=== PATIENT | female | born 1950 | race Caucasian/White ===

== ENCOUNTER → 2016-09-12 | Outpatient (CLI) | payer MEDICARE, OTHER | END | disposition home or self-care (01) | LOC: MW.MNT 09:41 | DX: I10 Essential (primary) hypertension (principal) | CPT/HCPCS: 97802 ==

== ENCOUNTER 2017-07-26 05:21 | Emergency (ER) | payer MEDICARE, OTHER ==
[2017-07-26] MEDS ORDERED: Ketorolac 30 MG/ML SDV IVPUSH ONE (05:33)
[2017-07-26] MEDS ORDERED: Sodium Chloride 0.9% 1,000 ML IV ONE ×2 (05:33→07:34)
[2017-07-26] MEDS ORDERED: Ondansetron 4 MG/2 ML SDV IVPUSH ONE ×2 (05:34→08:02)
--- NOTE | 2017-07-26 05:40 | EDM.PDOC ---
ED HPI GENERAL MEDICAL PROBLEM - General Chief Complaint: Abdominal Pain Stated Complaint: ABDOMINAL PAIN Time Seen by Provider: 07/26/17 05:38 Source of Information: Reports: Patient - History of Present Illness INITIAL COMMENTS - FREE TEXT/NARRATIVE: HISTORY AND PHYSICAL: History of present illness: [ Patient presents with abdominal pain she rates 9 out of 10 radiating from the back to the right lower quadrant, she relates this to jumping out of bed to answer the telephone this morning at 4 AM. She also states she has had low-grade symptoms in the lower abdomen for the last couple of days prior to this no fever nausea vomiting diarrhea constipation chest pain shortness breath headache dizziness palpitation no bowel or urine symptoms Patient reports hysterectomy and appendectomy performed in remote past ] Review of systems: As per history of present illness and below otherwise all systems reviewed and negative. Past medical history: As per history of present illness and as reviewed below otherwise noncontributory. Surgical history: As per history of present illness and as reviewed below otherwise noncontributory. Social history: No reported history of drug or alcohol abuse. Family history: As per history of present illness and as reviewed below otherwise noncontributory. Physical exam: HEENT: Atraumatic, normocephalic, pupils reactive, negative for conjunctival pallor or scleral icterus, mucous membranes moist, throat clear, neck supple, nontender, trachea midline. Lungs: Clear to auscultation, breath sounds equal bilaterally, chest nontender. Heart: S1S2, regular, negative for clicks, rubs, or JVD. Abdomen: Soft, nondistended, tender right lower quadrant as well as right upper quadrant mild guarding no rebound. Negative for masses or hepatosplenomegaly. Negative for costovertebral tenderness. Pelvis: Stable nontender. Genitourinary: Deferred. Rectal: Deferred. Extremities: Atraumatic, negative for cords or calf pain. Neurovascular unremarkable. Neuro: Awake, alert, oriented. Cranial nerves II through XII unremarkable. Cerebellum unremarkable. Motor and sensory unremarkable throughout. Exam nonfocal. Diagnostics: [cbc, cmp ua adilia lip ekg abd pelvis ct no contrast ] Therapeutics: [Saline fluid Zofran 8 mg IV Toradol 30 mg IV patient signed out at [address] results , further eval treat and disposition Dr. Raza] Impression: abdominal pain] Definitive disposition and diagnosis as appropriate pending reevaluation and review of above. right lower abdomen Pain Score (Numeric/FACES): 9 - Related Data Allergies Allergy/AdvReac Type Severity Reaction Status Date / Time No Known Allergies Allergy Verified 07/26/17 05:28 Home Meds: Home Meds Fish Oil/[place]-3 Fatty Acids [Fish Oil] 1,000 mg PO DAILY 03/10/14 [History] Levothyroxine 125 mcg PO BRK 03/10/14 [History] Losartan [Cozaar] 100 mg PO DAILY 03/16/14 [History] Triamterene/Hydrochlorothiazid [Triamterene-HCTZ 37.5-25 MG] 5.25 mg PO DAILY [History] Potassium Chloride 20 meq PO DAILY 08/07/16 [History] Aspirin 81 mg PO DAILY 07/26/17 [History] Past Medical History HEENT History: Reports: Other (See Below) Other HEENT History: "floaters" Cardiovascular History: Reports: High Cholesterol, Hypertension Respiratory History: Reports: None Gastrointestinal History: Reports: GERD Genitourinary History: Reports: UTI, Recurrent, Other (See Below) Other Genitourinary History: over active bladder 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 STATISTICS History: Reports: Polycystic Ovaries, Musculoskeletal History: Reports: None Neurological History: Reports: None Psychiatric History: Reports: None Endocrine/Metabolic History: Reports: Hypothyroidism, Obesity/BMI 30+ Hematologic History: Reports: Anemia, Blood Transfusion(s) Immunologic History: Reports: None Oncologic (Cancer) History: Reports: None Dermatologic History: Reports: None - Infectious Disease History Infectious Disease History: Reports: Chicken Pox, Measles, Mumps - Past Surgical History Head Surgeries/Procedures: Reports: None Cardiovascular Surgical History: Reports: None Respiratory Surgical History: Reports: None GI Surgical History: Reports: Appendectomy, Cholecystectomy, Colonoscopy Female Surgical History: Reports: Hysterectomy Endocrine Surgical History: Reports: None Neurological Surgical History: Reports: None Musculoskeletal Surgical History: Reports: Carpal Tunnel, Knee Replacement Oncologic Surgical History: Reports: None Social & Family History - Family History Family Medical History: Noncontributory Cardiac: Reports: Blood Clots/VTE/DVT, Heart Failure Respiratory: Reports: Asthma Musculoskeletal: Reports: Osteoporosis Neurological: Reports: Alzheimers Disease Endocrine/Metabolic: Reports: Osteoporosis Hematologic: Reports: Bleeding Disorder Oncologic: Reports: Bladder - Tobacco Use Smoking Status *Q: Never Smoker Second Hand Smoke Exposure: No - Caffeine Use Caffeine Use: Reports: Coffee - Alcohol Use Days Per Week of Alcohol Use: 0 Number of Drinks Per Day: 0 Total Drinks Per Week: 0 - Recreational Drug Use Recreational Drug Use: No Drug Use in Last 12 Months: No ED ROS GENERAL - Review of Systems Review Of Systems: ROS reveals no pertinent complaints other than HPI. ED EXAM, GENERAL - Physical Exam Exam: See Below Course - Vital Signs Last Recorded V/S: Last Vital Signs Temp 96.7 F 07/26/17 05:24 Pulse 56 L 07/26/17 05:24 Resp 20 07/26/17 05:24 BP 165/56 H 07/26/17 05:24 Pulse Ox 100 07/26/17 05:24 - Orders/Labs/Meds Orders: Active Orders 24 hr Category Date Time Status EKG Documentation Completion [RC] STAT Care 07/26/17 05:43 Active Abdomen Pelvis w wo Cont [CT] Stat Exams 07/26/17 05:37 Ordered UA W/MICROSCOPIC [URIN] Stat Lab 07/26/17 05:32 Uncollected Labs: Laboratory Tests 07/26/17 07/26/17 07/26/17 Range/Units 05:44 05:44 05:44 WBC 5.81 (4.0-11.0) K/uL RBC 3.86 L (4.30-5.90) M/uL Hgb 12.0 (12.0-16.0) g/dL Hct 35.6 L (36.0-46.0) % MCV 92.2 (80.0-98.0) fL MCH 31.1 (27.0-32.0) pg MCHC 33.7 (31.0-37.0) g/dL RDW Std Deviation 45.1 (28.0-62.0) fl RDW Coeff of Simon 13 (11.0-15.0) % Plt Count 270 (150-400) K/uL MPV 9.00 (7.40-12.00) fL Neut % (Auto) 54.2 (48.0-80.0) % Lymph % (Auto) 30.5 (16.0-40.0) % [place] % (Auto) 11.9 (0.0-15.0) % Eos % (Auto) 2.9 (0.0-7.0) % Baso % (Auto) 0.5 (0.0-1.5) % Neut # (Auto) 3.2 (1.4-5.7) K/uL Lymph # (Auto) 1.8 (0.6-2.4) K/uL [place] # (Auto) 0.7 (0.0-0.8) K/uL Eos # (Auto) 0.2 (0.0-0.7) K/uL Baso # (Auto) 0.0 (0.0-0.1) K/uL Nucleated RBC % 0.0 /100WBC Nucleated RBCs # 0 K/uL Sodium 138 (136-146) mmol/L Potassium 4.0 (3.5-5.1) mmol/L Chloride 105 (98-110) mmol/L Carbon Dioxide 22 (21-31) mmol/L BUN 32 H (6.0-23.0) mg/dL Creatinine 1.0 (0.6-1.5) mg/dL Est Cr Clr Drug Dosing 39.21 mL/min Estimated GFR (MDRD) 55.3 ml/min Glucose 103 (60-110) mg/dL Calcium 9.0 (8.8-10.8) mg/dL Total Bilirubin 0.2 (0.1-1.5) mg/dL AST 17 (5-40) IU/L ALT 17 (8-54) IU/L Alkaline Phosphatase 91 (40-150) Troponin I < 0.10 (0.0-0.29) NG/ML Total Protein 6.2 (6.0-8.0) g/dL Albumin 3.9 (3.4-4.8) g/dL Globulin 2.3 (2.0-3.5) g/dL Albumin/Globulin Ratio 1.7 (1.3-2.8) Amylase 89 (10-90) U/L Lipase 88 H (7-80) U/L Meds: Medications Discontinued Medications Generic Name Dose Route Start Last Admin Trade Name Freq PRN Reason Stop Dose Admin Sodium Chloride 1,000 mls @ 999 mls/hr 07/26/17 05:33 07/26/17 05:51 Normal Saline IV 07/26/17 06:33 999 mls/hr STAT ONE Administration Ketorolac Tromethamine 30 mg 07/26/17 05:33 07/26/17 05:52 Toradol IVPUSH 07/26/17 05:34 30 mg ONETIME ONE Administration Ondansetron HCl 8 mg 07/26/17 05:34 07/26/17 05:54 Zofran IVPUSH 07/26/17 05:35 8 mg ONETIME ONE Administration Departure - Departure Time of Disposition: 07:04 Disposition: Still A Patient 30 Condition: Fair Clinical Impression: Abdominal pain - Discharge Information Referrals: Migel Ledezma MD [Primary Care Provider] - Forms: ED Department Discharge - My Orders Last 24 Hours: My Active Orders 07/26/17 05:32 UA W/MICROSCOPIC [URIN] Stat 07/26/17 05:37 Abdomen Pelvis w wo Cont [CT] Stat 07/26/17 05:43 EKG Documentation Completion [RC] STAT - Assessment/Plan Last 24 Hours: My Active Orders 07/26/17 05:32 UA W/MICROSCOPIC [URIN] Stat 07/26/17 05:37 Abdomen Pelvis w wo Cont [CT] Stat 07/26/17 05:43 EKG Documentation Completion [RC] STAT
[2017-07-26] MEDS ORDERED: Iopamidol 755 Mg/ML 75 ML Bottle IVPUSH STA (07:30)
[2017-07-26] MEDS ORDERED: Famotidine 20 MG/2 ML SDV IVPUSH ONE (07:34)
[2017-07-26] MEDS ORDERED: Morphine 2 MG/ML Syringe IVPUSH ONE (08:02)
[2017-07-26 08:32] VITALS: BP 138/68
--- NOTE | 2017-07-28 09:45 | CT ---
EXAM DATE: 07/26/17 PATIENT'S AGE: 66 Patient: ADRIAN CONTRERAS Facility: [place], [place] Site . Site : 1950 Study: CT Abdomen/Pelvis W/ and W/O Cont [id number]/6/2018 7:34:35 AM Ordering Physician: Yamilet Ortez Final Report: INDICATION: Right lower quadrant pain since 4 a.m. TECHNIQUE: Volumetric helical scanning of the abdomen and pelvis was performed without and with 75 cc of Isovue 370 contrast material IV. Coronal and sagittal reconstructions were obtained. COMPARISON: None. FINDINGS: An acute hemorrhage in the right rectus muscle is demonstrated. No free blood is apparent. No bowel abnormality is apparent except for the small hiatal hernia. The liver is normal in size, shape and attenuation. Post op changes of cholecystectomy are demonstrated. No bile duct dilation is evident. The spleen, adrenal glands and pancreas are within normal limits. The kidneys are unremarkable. No lymphadenopathy is evident. Postop changes of total abdominal hysterectomy are demonstrated. A noncalcified 2 mm right middle lobe nodule is demonstrated. Along the minor fissure on image 9 of series 301. The heart is normal in size. IMPRESSION: 1. Acute right rectus hemorrhage. 2. Post total abdominal hysterectomy and cholecystectomy. 3. Noncalcified 2 mm right middle lobe nodule. Follow-up in accordance with Fleischner Society Guidelines (see below) is recommended. FLEISCHNER SOCIETY GUIDELINES: LOW RISK: - nodule less than 6 mm: No follow-up needed. - nodule 6-8 mm: Initial follow-up CT at 6-12 months and then at 18-24 months if no change. - nodule greater than 8 mm: Follow-up CTs at around 3, 9, and 24 months. Dynamic contrast-enhanced CT, PET, and/or biopsy. MULTIPLE LOW RISK: - nodule less than 6 mm: No follow-up needed. - nodule 6-8 mm: CT at 3-6 months, then consider CT at 18-24 months. - nodule greater than 8 mm: CT at 3-6 months, then consider CT at 18-24 months. HIGH RISK: - nodule less than 6 mm: Follow-up at 12 months. If no change, no further imaging needed. - nodule 6-8 mm: Initial follow-up CT at 3-6 months and then at 9-12 and 24 months if no change. - nodule greater than 8 mm: Follow-up CTs at around 3, 9, and 24 months. Dynamic contrast-enhanced CT, PET, and/or biopsy. MULTIPLE HIGH RISK: - nodule less than 6 mm: Optional CT at 12 months. - nodule 6-8 mm: CT at 3-6 months, then at 18-24 months. - nodule greater than 8 mm: CT at 3-6 months, then at 18-24 months. HIGH RISK is defined as one or more of the following: - at least 20 pack-year smoking history or equivalent second-hand exposure. - personal history of cancer or family history of lung cancer. - occupational exposure (asbestos, beryllium, silica, uranium, radon) - chronic interstitial/fibrotic lung disease. Please note that all CT scans at this facility use dose modulation, iterative reconstruction, and/or weight-based dosing when appropriate to reduce radiation dose to as low as reasonably achievable. Dictated by Alberto Spicer MD @ Jul 26 2017 7:44AM (Electronic Signature) Report Signed by Proxy. MTDD
== END 2017-07-26 09:19 | disposition home or self-care (01) ==
LOC: MW.ED 05:21
DX: M79.81 Nontraumatic hematoma of soft tissue (principal); E78.00 Pure hypercholesterolemia, unspecified; I10 Essential (primary) hypertension; Z79.899 Other long term (current) drug therapy; Z79.82 Long term (current) use of aspirin
CPT/HCPCS: 74178; 80053; 82150; 83690; 84484; 85025; 93005; 96361; 96374; 96375; 96376; 99284; J1885; J2270; J2405; J7040

== ENCOUNTER 2017-08-13 06:45 | Day surgery (SDC) | payer MEDICARE, OTHER ==
[~2017-08-13 06:45] MED LIST: Lactated Ringers 1,000 ML IV SCH; ceFAZolin 1 GM in Premix Bag 1 BAG IV SCH
[2017-08-13] MEDS ORDERED: Lidocaine 2% 5 ML SDV ONE ×2 (07:03→07:28)
[2017-08-13] MEDS ORDERED: Midazolam 1 MG/ML 2 ML SDV ONE (07:04)
[2017-08-13] MEDS ORDERED: fentaNYL 250 MCG/5 ML SDV ONE (07:04)
[2017-08-13] MEDS ORDERED: Propofol 200 MG/20 ML SDV ONE (07:04)
[2017-08-13] MEDS ORDERED: Midazolam 1 MG/ML 2 ML SDV IVPUSH ONE (07:16)
[2017-08-13] MEDS ORDERED: fentaNYL 100 MCG/2 ML SDV IVPUSH PRN ×2 (07:16→08:58)
--- NOTE | 2017-08-13 07:24 | PCM.PREANE ---
Preanesthetic Assessment - Anesthesia/Transfusion/Family Hx Anesthesia History: Prior Anesthesia Without Reaction Other Type of Anesthesia Reaction Comment: Reports history of motion sickness and "do get nauseated w/anesthesia" Family History of Anesthesia Reaction: No Transfusion History: Prior Transfusion Without Reaction - Review of Systems General: No Symptoms Pulmonary: No Symptoms Cardiovascular: No Symptoms Gastrointestinal: No Symptoms Neurological: No Symptoms, Difficulty Walking - Physical Assessment NPO Status Date: 08/12/17 Height: 1.5 m Weight: 76.657 kg ASA Class: 2 Mental Status: Alert & Oriented x3 Airway Class: Mallampati = 2 Dentition: Reports: Normal Dentition, [place](s) Lungs: Clear to Auscultation, Normal Respiratory Effort Cardiovascular: Regular Rate, Regular Rhythm - Allergies Allergies/Adverse Reactions: Allergies Allergy/AdvReac Type Severity Reaction Status Date / Time amlodipine Allergy Itching Verified 08/08/17 13:26 - Anesthesia Plan Pre-Op Medication Ordered: Anxiolytic - Acknowledgements Anesthesia Type Planned: General Anesthesia, Regional Block (PMH: thyroid replacement, htn, gerd, s/p TKA, PLAN: GET for surgery with ISB for post op pain management) Pt an Appropriate Candidate for the Planned Anesthesia: Yes Alternatives and Risks of Anesthesia Discussed w Pt/Guardian: Yes Pt/Guardian Understands and Agrees with Anesthesia Plan: Yes PreAnesthesia Questionnaire HEENT History: Reports: None Cardiovascular History: Reports: High Cholesterol, Hypertension Respiratory History: Reports: None Gastrointestinal History: Reports: None Genitourinary History: Reports: UTI, Recurrent, Other (See Below) Other Genitourinary History: over active bladder 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: Reports: Polycystic Ovaries, Musculoskeletal History: Reports: Arthritis Neurological History: Reports: None Psychiatric History: Reports: None Endocrine/Metabolic History: Reports: Hypothyroidism, Obesity/BMI 30+ Hematologic History: Reports: Anemia, Blood Transfusion(s) Immunologic History: Reports: None Oncologic (Cancer) History: Reports: None Dermatologic History: Reports: None - Infectious Disease History Infectious Disease History: Reports: Chicken Pox, Measles, Mumps - Past Surgical History Head Surgeries/Procedures: Reports: None HEENT Surgical History: Reports: Tonsillectomy Cardiovascular Surgical History: Reports: None Respiratory Surgical History: Reports: None GI Surgical History: Reports: Appendectomy, Cholecystectomy, Colonoscopy Female Surgical History: Reports: Breast Biopsy, Hysterectomy, Oophorectomy, Tubal Ligation Endocrine Surgical History: Reports: None Neurological Surgical History: Reports: None Musculoskeletal Surgical History: Reports: Carpal Tunnel, Knee Replacement, Other (See Below) Other Musculoskeletal Surgeries/Procedures:: hammer toe Oncologic Surgical History: Reports: Biopsy of Breast Dermatological Surgical History: Reports: Skin Biopsy - SUBSTANCE USE Smoking Status *Q: Never Smoker Second Hand Smoke Exposure: No Days Per Week of Alcohol Use: 0 Number of Drinks Per Day: 0 Total Drinks Per Week: 0 Recreational Drug Use History: No - HOME MEDS Home Medications: Home Meds Fish Oil/[place]-3 Fatty Acids [Fish Oil] 1,000 mg PO DAILY 03/10/14 [History] Levothyroxine 125 mcg PO BRK 03/10/14 [History] Losartan [Cozaar] 100 mg PO DAILY 03/16/14 [History] Triamterene/Hydrochlorothiazid [Triamterene-HCTZ 37.5-25 MG] 1 tab PO DAILY [History] Potassium Chloride 20 meq PO DAILY 08/07/16 [History] Aspirin 81 mg PO DAILY 07/26/17 [History] Oxybutynin Chloride 5 mg PO BID PRN 08/08/17 [History] - CURRENT (IN HOUSE) MEDS Current Meds: Current Medications Hydrocodone Bitart/Acetaminophen (Capay 325-10 Mg) 1 - 2 tab PO Q4H PRN PRN Reason: Pain Fentanyl (Sublimaze) 50 mcg IVPUSH Q5M PRN PRN Reason: Pain Cefazolin Sodium/Dextrose 1 gm (/ Premix) 50 mls @ 100 mls/hr IV ONCALL ABBIE Lactated Ringer's (Ringers, Lactated) 1,000 mls @ 100 mls/hr IV ASDIRECTED ABBIE Ketorolac Tromethamine (Toradol) 10 mg PO Q6H PRN PRN Reason: Pain Stop: 08/18/17 08:01 Discontinued Medications Fentanyl (Sublimaze) Confirm Administered Dose 250 mcg .ROUTE .STK-MED ONE Stop: 08/13/17 07:05 Cefazolin Sodium/Dextrose (Ancef) Confirm Administered Dose 50 mls @ as directed .ROUTE .STK-MED ONE Stop: 08/13/17 07:11 Lidocaine (Xylocaine-Mpf 2%) Confirm Administered Dose 10 ml .ROUTE .STK-MED ONE Stop: 08/13/17 07:04 Midazolam HCl (Versed 1 Mg/Ml) Confirm Administered Dose 2 mg .ROUTE .STK-MED ONE Stop: 08/13/17 07:05 Midazolam HCl (Versed 1 Mg/Ml) 2 mg IVPUSH ONETIME ONE Stop: 08/13/17 07:17 Propofol (Diprivan 20 Ml) Confirm Administered Dose 400 mg .ROUTE .STK-MED ONE Stop: 08/13/17 07:05
[2017-08-13] MEDS ORDERED: Dexamethasone 4 MG/ML 5 ML MDV ONE (07:28)
[2017-08-13] MEDS ORDERED: Bupivacaine 0.5% 30 ML SDV ONE (07:30)
--- NOTE | 2017-08-13 07:44 | PCM.SN ---
- Free Text/Narrative Note: ISB note. consent obtained, time out performed, sedated with versed 2 mg and fentanyl 50 mcg site marked. skin localized. needle placed. good twitch. no paresthesia with needle placement or injection. 30 ml of 0.5% bupivicaine with 8 mg of dexamethasone placed in 5ml increments. No complications,
[2017-08-13] MEDS ORDERED: Acetaminophen/HYDROcodone 325-10 MG Tab PO PRN (08:00)
[2017-08-13] MEDS ORDERED: Ketorolac 10 MG Tab PO PRN (08:00)
[2017-08-13] MEDS ORDERED: Scopolamine 1.5 MG Transdermal Patch ONE (08:14)
[2017-08-13] MEDS ORDERED: Ondansetron 4 MG/2 ML SDV ONE (09:12)
[2017-08-13] MEDS ORDERED: traMADol 50 MG Tab PO PRN (09:39)
--- NOTE | 2017-08-13 09:50 | PCM.OPNOTE ---
- General Post-Op/Procedure Note Date of Surgery/Procedure: 08/13/17 Operative Procedure(s): R shoulder scope with SAD, extensive debridement including biceps tenotomy. Post-Op Diagnosis: R shoulder impingement, biceps tendonitis Anesthesia Technique: General ET Tube, Regional Block Primary Surgeon: Samantha David Clinical Program Director: Karen Mcdermott in mLs: 10 Condition: Good Free Text/Narrative:: #[id number]
[2017-08-13] MEDS ORDERED: Succinylcholine/Normal Saline 200 MG/10 ML Syringe ONE (10:32)
--- NOTE | 2017-08-13 11:01 | PCM48HPAN ---
Post Anesthesia Note - EVALUATION WITHIN 48HRS OF ANESTHETIC Vital Signs in Normal Range: Yes Patient Participated in Evaluation: Yes Respiratory Function Stable: Yes Airway Patent: Yes Cardiovascular Function Stable: Yes Hydration Status Stable: Yes Pain Control Satisfactory: Yes Nausea and Vomiting Control Satisfactory: Yes Mental Status Recovered: Yes
--- NOTE | 2017-08-13 11:01 | PCM.POSTAN ---
POST ANESTHESIA ASSESSMENT - MENTAL STATUS Mental Status: Alert, Oriented - RESPIRATORY Respiratory Status: Respiratory Rate WNL, Airway Patent, O2 Saturation Stable - CARDIOVASCULAR CV Status: Pulse Rate WNL, Blood Pressure Stable - GASTROINTESTINAL GI Status: No Symptoms - POST OP HYDRATION Hydration Status: Adequate & Stable
[2017-08-13 11:55] VITALS: BP 172/72
--- NOTE | 2017-08-13 14:20 | OR ---
SURGEON: Samantha David MD DATE OF PROCEDURE: 08/13/2017 PREOPERATIVE DIAGNOSES: 1. Right shoulder impingement syndrome. 2. Right shoulder biceps tendinopathy. POSTOPERATIVE DIAGNOSIS: 1. Right shoulder impingement syndrome. 2. Right shoulder biceps tendinopathy. 3. Degenerative anterior and posterior labral tear. PROCEDURE: Right shoulder arthroscopy with: 1. Subacromial decompression with release of coracoacromial ligament and acromioplasty. 2. Extensive debridement including biceps tenotomy and debridement of degenerative anterior and posterior labral tear. HPLC CHEMIST: Karen Mcdermott PA-C. ANESTHESIA: General with interscalene block. ESTIMATED BLOOD LOSS: 10 mL. TOURNIQUET TIME: 0 minutes. COMPLICATIONS: None. DVT PROPHYLAXIS: PAS boots to bilateral lower extremities. IMPLANTS USED: None. BRIEF HISTORY: Angelic is a 66-year-old female who has had complaint of progressive right shoulder pain. She has tried conservative treatment including injections and physical therapy, which have not helped her symptoms considerably. Due to her lack of response to conservative treatment, I did recommend surgical intervention. Risks and goals of the procedure were discussed with the patient and were documented preoperatively. She agreed to proceed. DESCRIPTION OF PROCEDURE: The patient was properly identified and brought to the operating room. She was transferred from the OR cart and placed on the operating table in supine position. General anesthesia was administered. An interscalene block had been administered preoperatively. After adequate anesthesia was obtained, the patient was placed into a beach-chair type position. Care was taken to pad all bony prominences. Her head was secured. The right upper extremity was then prepped in standard fashion using ChloraPrep solution. It was then sterilely draped. A time-out was performed to ensure correct site and procedure. Preoperative antibiotics were given. The surgical site had been marked preoperatively. Bony landmarks were identified with a marking pen. Approximately 30 mL of normal saline was introduced into the glenohumeral joint. A posterior portal was then established. Blunt trocar and cannula were introduced into the glenohumeral joint. Camera, inflow, and outflow were assembled. The biceps tendon appeared to be attached to the superior labrum; however, there were only a few fibers holding it intact. There was extensive fraying of the proximal portion of the tendon. Electrocautery was used to remove the tendon at the attachment to the labrum. Electrocautery was used to smooth the edges at the amputation site. The biceps was then visualized. A good portion of the biceps retracted into the biceps tendon sheath; however, a portion of the biceps tendon remained in the intra-articular portion. A shaver was introduced and this was resected without difficulty. She did have significant synovitis present within the rotator interval. An anterior portal had been established previously. Electrocautery was used to remove some of the synovitis. The subscapularis was visualized. There was some degenerative fraying along the superior portion of the subscapularis. It was extensively probed and its attachment appeared intact. It appeared to be intertendinous fraying only. The subscapular recess showed no loose bodies. The labrum was then inspected. She did have a degenerative anterior and posterior labral tear with fraying. This was resected with the shaver to a stable remnant. The remainder of the labrum appeared intact. Both the glenoid and humeral head were visualized. No degenerative findings were noted. I then entered the axillary pouch. Mild synovitis was noted with no loose bodies. The arm was then brought into an abducted and externally rotated position. The bare area was noted posteriorly. As I progressed forward, there was a partial tear along the anterior undersurface of the supraspinatus tendon. This measured approximately 2 mm. This was roughened with a shaver and the remainder of the tendon appeared intact. The arm was then brought back into a neutral position. Instruments were removed from the glenohumeral joint. The blunt trocar and cannula were then introduced into the subacromial space. Camera, inflow, and outflow were assembled. A lateral portal was established. She had extensive bursitis present. This was resected with a combination of the shaver and electrocautery. The coracoacromial ligament was released anteriorly. The undersurface of the acromion was also cleared of soft tissue. There appeared to be a moderate impingement with the acromion and an acromioplasty was performed with a 5.0 mm lebron. This provided good decompression of the subacromial space. An extensive bursectomy was performed to allow visualization of the rotator cuff. The rotator cuff appeared intact. It was probed and no softening or tears were noted. Instruments were then removed from the shoulder. The portal sites were closed with 3-0 nylon. Xeroform gauze was placed over the wound and a bulky dressing was applied. She was placed into a sling. She was awakened from her anesthetic and transferred back to the operating room cart. She was brought to recovery room in stable condition. All needle and sponge counts were correct. MARK ANTHONY VALDES /[id number]
== END 2017-08-13 11:35 | disposition home or self-care (01) ==
LOC: MW.SDS 06:45
PROVIDERS: ATTEND Orthopaedic Surgery
DX: M75.41 Impingement syndrome of right shoulder (principal); M67.929 Unspecified disorder of synovium and tendon, unspecified upper arm; S43.401A Unspecified sprain of right shoulder joint, initial encounter; M65.811 Other synovitis and tenosynovitis, right shoulder; M17.0 Bilateral primary osteoarthritis of knee; K21.9 Gastro-esophageal reflux disease without esophagitis; H91.92 Unspecified hearing loss, left ear; I10 Essential (primary) hypertension; E03.9 Hypothyroidism, unspecified; N32.81 Overactive bladder; H93.19 Tinnitus, unspecified ear; N95.2 Postmenopausal atrophic vaginitis; E78.00 Pure hypercholesterolemia, unspecified; E66.9 Obesity, unspecified; Z79.82 Long term (current) use of aspirin; Z79.899 Other long term (current) drug therapy; Z88.8 Allergy status to other drugs, medicaments and biological substances; Z68.34 Body mass index [BMI] 34.0-34.9, adult; Z90.49 Acquired absence of other specified parts of digestive tract; Z90.710 Acquired absence of both cervix and uterus; Z90.722 Acquired absence of ovaries, bilateral; Z90.89 Acquired absence of other organs; Z98.51 Tubal ligation status; Z98.890 Other specified postprocedural states
CPT/HCPCS: 23405; 29823; 88304; A9270; J0690; J1100; J2250; J2405; J3010; J7120; 01630; 64415; J2704

== ENCOUNTER 2019-03-01 10:24 | Emergency (ER) | payer MEDICARE, OTHER ==
--- NOTE | 2019-03-01 10:35 | EDM.PDOC ---
ED HPI GENERAL MEDICAL PROBLEM - General Chief Complaint: Gastrointestinal Problem Stated Complaint: LOOSE STOOL Time Seen by Provider: 03/01/19 10:26 Source of Information: Reports: Patient History Limitations: Reports: No Limitations - History of Present Illness INITIAL COMMENTS - FREE TEXT/NARRATIVE: History of present illness: []Patient started having yellowish nonbloody diarrhea 2 weeks ago and has been unrelenting since. It started out 4-5 episodes per day and is now every 20 minutes. She says it has a foul odor. Patient denies any reverse, chills, urinary complaints, abdominal pain or vomiting. Review of systems: As per history of present illness and below otherwise all systems reviewed and negative. Past medical history: As per history of present illness and as reviewed below otherwise noncontributory. Surgical history: As per history of present illness and as reviewed below otherwise noncontributory. Social history: No reported history of drug or alcohol abuse. Family history: As per history of present illness and as reviewed below otherwise noncontributory. Physical exam: General: Well developed, well nourished in NAD HEENT: Atraumatic, normocephalic, pupils reactive, negative for conjunctival pallor or scleral icterus, mucous membranes moist, throat clear, neck supple, nontender, trachea midline. Lungs: Clear to auscultation, breath sounds equal bilaterally, chest nontender. Heart: S1S2, regular, negative for clicks, rubs, or JVD. Abdomen: NABS, Soft, nondistended, nontender. Negative for masses or hepatosplenomegaly. Negative for costovertebral tenderness. Pelvis: Stable nontender. Genitourinary: Deferred. Rectal: Deferred. Extremities: Atraumatic, negative for cords or calf pain. Neurovascular unremarkable. Neuro: Awake, alert, oriented. Cranial nerves II through XII unremarkable. Cerebellum unremarkable. Motor and sensory unremarkable throughout. Exam nonfocal. Skin:warm and dry Diagnostics: CBC, chemistry, fecal white cells, stool culture and C. difficile Therapeutics: IV hydration ED Course: stable Impression: campylobacter Prescriptions: zithromax Plan: Take meds as directed, drink plenty of fluids follow up with your primary care physician, return to ER if symptoms worsen or change. Definitive disposition and diagnosis as appropriate pending reevaluation and review of above. Abdominal Pain Score (Numeric/FACES): 2 - Related Data Allergies Allergy/AdvReac Type Severity Reaction Status Date / Time amlodipine Allergy Itching Verified 03/01/19 10:41 Home Meds: Home Meds Fish Oil/[place]-3 Fatty Acids [Fish Oil] 1,000 mg PO DAILY 03/10/14 [History] Levothyroxine 100 mcg PO BRK 03/10/14 [History] Losartan [Cozaar] 100 mg PO DAILY 03/16/14 [History] Triamterene/Hydrochlorothiazid [Triamterene-HCTZ 37.5-25 MG] 1 tab PO DAILY [History] Potassium Chloride 20 meq PO DAILY 08/07/16 [History] Oxybutynin Chloride 5 mg PO BID PRN 08/08/17 [History] Azithromycin [Zithromax] 250 mg PO DAILY #6 tab 03/01/19 [Rx] Past Medical History HEENT History: Reports: None Other HEENT History: "floaters" Cardiovascular History: Reports: High Cholesterol, Hypertension Respiratory History: Reports: None Gastrointestinal History: Reports: None Genitourinary History: Reports: UTI, Recurrent, Other (See Below) Other Genitourinary History: over active bladder [employer] History: Reports: Polycystic Ovaries, Musculoskeletal History: Reports: Arthritis Neurological History: Reports: None Psychiatric History: Reports: None Endocrine/Metabolic History: Reports: Hypothyroidism, Obesity/BMI 30+ Hematologic History: Reports: Anemia, Blood Transfusion(s) Immunologic History: Reports: None Oncologic (Cancer) History: Reports: None Dermatologic History: Reports: None - Infectious Disease History Infectious Disease History: Reports: Chicken Pox, Measles, Mumps - Past Surgical History Head Surgeries/Procedures: Reports: None HEENT Surgical History: Reports: Tonsillectomy Cardiovascular Surgical History: Reports: None Respiratory Surgical History: Reports: None Female Surgical History: Reports: Breast Biopsy, Hysterectomy, Oophorectomy, Tubal Ligation Endocrine Surgical History: Reports: None Neurological Surgical History: Reports: None Musculoskeletal Surgical History: Reports: Carpal Tunnel, Knee Replacement, Other (See Below) Other Musculoskeletal Surgeries/Procedures:: hammer toe Oncologic Surgical History: Reports: Biopsy of Breast Dermatological Surgical History: Reports: Skin Biopsy Social & Family History - Family History Family Medical History: Noncontributory Cardiac: Reports: Blood Clots/VTE/DVT, Heart Failure Respiratory: Reports: Asthma Musculoskeletal: Reports: Osteoporosis Neurological: Reports: Alzheimers Disease Endocrine/Metabolic: Reports: Osteoporosis Hematologic: Reports: Bleeding Disorder Oncologic: Reports: Bladder - Caffeine Use Caffeine Use: Reports: Coffee ED ROS GENERAL - Review of Systems Review Of Systems: See Below ED EXAM, GI/ABD - Physical Exam Exam: See Below Course - Vital Signs Last Recorded V/S: Last Vital Signs Temp 96.6 F 03/01/19 10:43 Pulse 57 L 03/01/19 10:43 Resp 18 03/01/19 10:43 BP 132/67 03/01/19 10:43 Pulse Ox 97 03/01/19 10:43 - Orders/Labs/Meds Orders: Active Orders 24 hr Category Date Time Status CULTURE STOOL + CAMPY+SHIGATOX [RM] Stat Lab 03/01/19 11:39 Results Sodium Chloride 0.9% [Saline Flush] Med 03/01/19 10:43 Active 10 ml FLUSH ASDIRECTED PRN Sodium Chloride 0.9% [Saline Flush] Med 03/01/19 10:43 Active 2.5 ml FLUSH ASDIRECTED PRN Isolation [COMM] Stat Oth 03/01/19 10:45 Ordered Saline Lock Insert [OM.PC] Stat Oth 03/01/19 10:42 Ordered Medication Orders Sodium Chloride (Saline Flush) 10 ml FLUSH ASDIRECTED PRN PRN Reason: Keep Vein Open Sodium Chloride (Saline Flush) 2.5 ml FLUSH ASDIRECTED PRN PRN Reason: Keep Vein Open Labs: Laboratory Tests 03/01/19 03/01/19 Range/Units 10:53 10:53 WBC 4.77 (4.0-11.0) K/uL RBC 4.14 L (4.30-5.90) M/uL Hgb 13.0 (12.0-16.0) g/dL Hct 37.7 (36.0-46.0) % MCV 91.1 (80.0-98.0) fL MCH 31.4 (27.0-32.0) pg MCHC 34.5 (31.0-37.0) g/dL RDW Std Deviation 40.9 (28.0-62.0) fl RDW Coeff of Simon 12 (11.0-15.0) % Plt Count 272 (150-400) K/uL MPV 9.10 (7.40-12.00) fL Neut % (Auto) 63.0 (48.0-80.0) % Lymph % (Auto) 22.6 (16.0-40.0) % [place] % (Auto) 10.5 (0.0-15.0) % Eos % (Auto) 3.1 (0.0-7.0) % Baso % (Auto) 0.8 (0.0-1.5) % Neut # (Auto) 3.0 (1.4-5.7) K/uL Lymph # (Auto) 1.1 (0.6-2.4) K/uL [place] # (Auto) 0.5 (0.0-0.8) K/uL Eos # (Auto) 0.2 (0.0-0.7) K/uL Baso # (Auto) 0.0 (0.0-0.1) K/uL Sodium 137 (136-145) mmol/L Potassium 3.8 (3.5-5.1) mmol/L Chloride 102 (98-107) mmol/L Carbon Dioxide 24.0 (21.0-32.0) mmol/L BUN 20 H (7.0-18.0) mg/dL Creatinine 1.1 H (0.6-1.0) mg/dL Est Cr Clr Drug Dosing 34.67 mL/min Estimated GFR (MDRD) 49.2 ml/min Glucose 93 (74-106) mg/dL Calcium 9.4 (8.5-10.1) mg/dL Total Bilirubin 0.6 (0.2-1.0) mg/dL AST 19 (15-37) IU/L ALT 24 (14-63) IU/L Alkaline Phosphatase 94 (46-116) U/L Total Protein 7.0 (6.4-8.2) g/dL Albumin 3.8 (3.4-5.0) g/dL Globulin 3.2 (2.6-4.0) g/dL Albumin/Globulin Ratio 1.2 (0.9-1.6) Meds: Medications Generic Name Dose Route Start Last Admin Trade Name Freq PRN Reason Stop Dose Admin Sodium Chloride 10 ml 03/01/19 10:43 Saline Flush FLUSH ASDIRECTED PRN Keep Vein Open Sodium Chloride 2.5 ml 03/01/19 10:43 Saline Flush FLUSH ASDIRECTED PRN Keep Vein Open Discontinued Medications Generic Name Dose Route Start Last Admin Trade Name Molly PRN Reason Stop Dose Admin Azithromycin 500 mg 03/01/19 12:26 03/01/19 12:32 Zithromax PO 03/01/19 12:27 500 mg Q24H ONE Administration Sodium Chloride 1,000 mls @ 999 mls/hr 03/01/19 12:05 03/01/19 12:13 Normal Saline IV 03/01/19 13:05 999 mls/hr .Bolus ONE Administration Departure - Departure Time of Disposition: 13:14 Disposition: Home, Self-Care 01 Condition: Good Clinical Impression: Campylobacter diarrhea - Discharge Information *PRESCRIPTION DRUG MONITORING PROGRAM REVIEWED*: No *COPY OF PRESCRIPTION DRUG MONITORING REPORT IN PATIENT AMBER: No Prescriptions: Azithromycin [Zithromax] 250 mg PO DAILY #6 tab Instructions: Campylobacter Gastroenteritis Referrals: PCP,Unknown [Primary Care Provider] - Forms: ED Department Discharge Additional Instructions: The following information is given to patients seen in the emergency department who are being discharged to home. This information is to outline your options for follow-up care. We provide all patients seen in our emergency department with a follow-up referral. The need for follow-up, as well as the timing and circumstances, are variable depending upon the specifics of your emergency department visit. If you don't have a primary care physician on staff, we will provide you with a referral. We always advise you to contact your personal physician following an emergency department visit to inform them of the circumstance of the visit and for follow-up with them and/or the need for any referrals to a consulting specialist. The emergency department will also refer you to a specialist when appropriate. This referral assures that you have the opportunity for follow-up care with a specialist. All of these measure are taken in an effort to provide you with optimal care, which includes your follow-up. Under all circumstances we always encourage you to contact your private physician who remains a resource for coordinating your care. When calling for follow-up care, please make the office aware that this follow-up is from your recent emergency room visit. If for any reason you are refused follow-up, please contact the [facility] Emergency Department at and asked to speak to the emergency department charge nurse. Take meds as directed, follow up with your primary care physician, return to ER if symptoms worsen or change. [facility] [place] [id number] - My Orders Last 24 Hours: My Active Orders 03/01/19 10:42 Saline Lock Insert [OM.PC] Stat 03/01/19 10:43 Sodium Chloride 0.9% [Saline Flush] 10 ml FLUSH ASDIRECTED PRN Sodium Chloride 0.9% [Saline Flush] 2.5 ml FLUSH ASDIRECTED PRN 03/01/19 10:45 Isolation [COMM] Stat 03/01/19 11:39 CULTURE STOOL + CAMPY+SHIGATOX [RM] Stat - Assessment/Plan Last 24 Hours: My Active Orders 03/01/19 10:42 Saline Lock Insert [OM.PC] Stat 03/01/19 10:43 Sodium Chloride 0.9% [Saline Flush] 10 ml FLUSH ASDIRECTED PRN Sodium Chloride 0.9% [Saline Flush] 2.5 ml FLUSH ASDIRECTED PRN 03/01/19 10:45 Isolation [COMM] Stat 03/01/19 11:39 CULTURE STOOL + CAMPY+SHIGATOX [RM] Stat
[2019-03-01] MEDS ORDERED: Sodium Chloride 0.9% 2.5 ML Syringe FLUSH PRN (10:43)
[2019-03-01] MEDS ORDERED: Sodium Chloride 0.9% 10 ML Syringe FLUSH PRN (10:43)
[2019-03-01 11:28] LABS: POTASSIUM,K 3.8 mmol/L (3.5-5.1)
[2019-03-01] MEDS ORDERED: Sodium Chloride 0.9% 1,000 ML IV ONE (12:05)
[2019-03-01] MEDS ORDERED: Azithromycin 250 MG Tab PO ONE (12:26)
[2019-03-01 18:06] VITALS: BP 142/59; PULSE 45
== END 2019-03-01 13:13 | disposition home or self-care (01) ==
LOC: MW.ED 10:24
DX: A04.5 Campylobacter enteritis (principal); I10 Essential (primary) hypertension; E03.9 Hypothyroidism, unspecified; E66.9 Obesity, unspecified; Z79.899 Other long term (current) drug therapy; Z90.710 Acquired absence of both cervix and uterus; Z98.51 Tubal ligation status; Z88.8 Allergy status to other drugs, medicaments and biological substances
CPT/HCPCS: 36415; 80053; 83630; 85025; 87046; 87077; 87324; 87899; 96360; 99284; A9270; J7040

== ENCOUNTER 2019-03-08 15:21 | Observation (INO) | payer MEDICARE, OTHER ==
--- NOTE | 2019-03-08 15:30 | EDM.PDOC ---
ED HPI GENERAL MEDICAL PROBLEM - General Stated Complaint: E. COLI Time Seen by Provider: 03/08/19 15:29 Source of Information: Reports: Patient History Limitations: Reports: No Limitations - History of Present Illness INITIAL COMMENTS - FREE TEXT/NARRATIVE: HISTORY AND PHYSICAL: History of present illness: Patient is a 68-year-old female who presents to the emergency room with complaints of diarrhea and headache. She states over the past 4 weeks she has had intermittent diarrhea. Over the past 1-2 weeks the diarrhea has been persistent. Was seen in ER on 03/01/2019 for this complaint and had labs and IV hydration. Had been given Zithromax for + Campylobacter infection. States she completed the antibiotic although her symptoms have not improved. Describes the headache as a dull generalized headache; has not light or noise sensitivity. "I think its just from having to sit on the toilet" for too long. Patient denies any fever, chills, neck pain/stiffness, change in vision, syncope or near syncope. Denies any chest pain, back pain, shortness of breath or cough. Denies any abdominal pain, nausea, vomiting, constipation or dysuria. Has not noted any blood in urine or stool. Patient has been eating and drinking appropriately. Review of systems: As per history of present illness and below otherwise all systems reviewed and negative. Past medical history: As per history of present illness and as reviewed below otherwise noncontributory. Surgical history: As per history of present illness and as reviewed below otherwise noncontributory. Social history: See social history for further information Family history: As per history of present illness and as reviewed below otherwise noncontributory. Physical exam: General: Well-developed and well-nourished 68-year-old female. Alert and oriented. Nontoxic appearing and in no acute distress. HEENT: Atraumatic, normocephalic, pupils equal and reactive bilaterally, negative for conjunctival pallor or scleral icterus, mucous membranes moist, TMs normal bilaterally, throat clear, neck supple, nontender, trachea midline. No drooling or trismus noted. No meningeal signs. No hot potato voice noted. Lungs: Clear to auscultation, breath sounds equal bilaterally, chest nontender. Heart: S1S2, regular rate and rhythm without overt murmur Abdomen: Soft, nondistended, nontender. Negative for masses or hepatosplenomegaly. Negative for costovertebral tenderness. Pelvis: Stable nontender. Genitourinary: Deferred. Rectal: Deferred. Skin: Intact, warm, dry. No lesions or rashes noted. Extremities: Atraumatic, moves all extremities per self without difficulty or deficits, negative for cords or calf pain. Neurovascular unremarkable. Neuro: Awake, alert, oriented. Cranial nerves II through XII unremarkable. Cerebellum unremarkable. Motor and sensory unremarkable throughout. Exam nonfocal. Notes: Chronically elevated BUN/Creat since 2018; likely due to dehydration. CT results pending, will follow those appropriately. Admission was offered to this patient, patient does except. Dr. Pop was aware of her and is agreeable to keeping her for continued care and management. Diagnostics: CBC, CMP, Stool Studies, UA Therapeutics: IV fluids, Toradol (declined) Impression: Diarrhea Dehydration Plan: Observation admission to [facility] Definitive disposition and diagnosis as appropriate pending reevaluation and review of above. Abdominal Pain Score (Numeric/FACES): 2 - Related Data Allergies Allergy/AdvReac Type Severity Reaction Status Date / Time amlodipine Allergy Itching Verified 03/08/19 15:27 Home Meds: Home Meds Fish Oil/[place]-3 Fatty Acids [Fish Oil] 1,000 mg PO DAILY 03/10/14 [History] Levothyroxine 100 mcg PO BRK 03/10/14 [History] Losartan [Cozaar] 100 mg PO DAILY 03/16/14 [History] Triamterene/Hydrochlorothiazid [Triamterene-HCTZ 37.5-25 MG] 1 tab PO DAILY [History] Potassium Chloride 20 meq PO DAILY 08/07/16 [History] Oxybutynin Chloride 5 mg PO BID PRN 08/08/17 [History] Past Medical History HEENT History: Reports: None Other HEENT History: "floaters" Cardiovascular History: Reports: High Cholesterol, Hypertension Respiratory History: Reports: None Gastrointestinal History: Reports: None Genitourinary History: Reports: UTI, Recurrent, Other (See Below) Other Genitourinary History: over active bladder [employer] History: Reports: Polycystic Ovaries, Musculoskeletal History: Reports: Arthritis Neurological History: Reports: None Psychiatric History: Reports: None Endocrine/Metabolic History: Reports: Hypothyroidism, Obesity/BMI 30+ Hematologic History: Reports: Anemia, Blood Transfusion(s) Immunologic History: Reports: None Oncologic (Cancer) History: Reports: None Dermatologic History: Reports: None - Infectious Disease History Infectious Disease History: Reports: Chicken Pox, Measles, Mumps - Past Surgical History Head Surgeries/Procedures: Reports: None HEENT Surgical History: Reports: Tonsillectomy Cardiovascular Surgical History: Reports: None Respiratory Surgical History: Reports: None Female Surgical History: Reports: Breast Biopsy, Hysterectomy, Oophorectomy, Tubal Ligation Endocrine Surgical History: Reports: None Neurological Surgical History: Reports: None Musculoskeletal Surgical History: Reports: Carpal Tunnel, Knee Replacement, Other (See Below) Other Musculoskeletal Surgeries/Procedures:: hammer toe Oncologic Surgical History: Reports: Biopsy of Breast Dermatological Surgical History: Reports: Skin Biopsy Social & Family History - Family History Family Medical History: Noncontributory Cardiac: Reports: Blood Clots/VTE/DVT, Heart Failure Respiratory: Reports: Asthma Musculoskeletal: Reports: Osteoporosis Neurological: Reports: Alzheimers Disease Endocrine/Metabolic: Reports: Osteoporosis Hematologic: Reports: Bleeding Disorder Oncologic: Reports: Bladder - Caffeine Use Caffeine Use: Reports: Coffee ED ROS GENERAL - Review of Systems Review Of Systems: ROS reveals no pertinent complaints other than HPI. ED EXAM, GI/ABD - Physical Exam Exam: See Below (See dictation) Course - Vital Signs Last Recorded V/S: Last Vital Signs Temp 97.5 F 03/09/19 07:32 Pulse 55 L 03/09/19 07:32 Resp 18 03/09/19 07:32 BP 169/71 H 03/09/19 08:36 Pulse Ox 99 03/09/19 07:32 - Orders/Labs/Meds Orders: Active Orders 24 hr Category Date Time Status Admission Status [Patient Status] [ADT] Stat ADT 03/08/19 17:38 Active CULTURE STOOL + CAMPY+SHIGATOX [RM] Stat Lab 03/09/19 06:20 Results CULTURE URINE [RM] Stat Lab 03/08/19 16:50 Received Isolation [COMM] Stat Oth 03/08/19 15:38 Ordered Medication Orders Acetaminophen (Tylenol) 650 mg PO Q4H PRN PRN Reason: Pain (Mild 1-3)/fever Last Admin: 03/09/19 08:34 Dose: 650 mg Enoxaparin Sodium (Lovenox) 40 mg SUBCUT Q24H ABBIE Last Admin: 03/08/19 18:41 Dose: 40 mg Levothyroxine Sodium (Levothyroxine) 100 mcg PO ACBREAKFAST [facility] Losartan Potassium (Cozaar) 100 mg PO DAILY [facility] Last Admin: 03/09/19 08:36 Dose: 100 mg Ondansetron HCl (Zofran Odt) 4 mg PO Q4H PRN PRN Reason: nausea, able to take PO Ondansetron HCl (Zofran) 4 mg IVPUSH Q4H PRN PRN Reason: Nausea Triamterene/HCTZ (Maxzide 25-37.5 Mg) 1 each PO DAILY [facility] Last Admin: 03/09/19 08:33 Dose: 1 each Labs: Laboratory Tests 03/08/19 03/08/19 03/08/19 Range/Units 15:54 15:54 16:50 WBC 9.67 (4.0-11.0) K/uL RBC 4.09 L (4.30-5.90) M/uL Hgb 12.7 (12.0-16.0) g/dL Hct 37.0 (36.0-46.0) % MCV 90.5 (80.0-98.0) fL MCH 31.1 (27.0-32.0) pg MCHC 34.3 (31.0-37.0) g/dL RDW Std Deviation 43.5 (28.0-62.0) fl RDW Coeff of Simon 13 (11.0-15.0) % Plt Count 336 (150-400) K/uL MPV 9.30 (7.40-12.00) fL Neut % (Auto) 74.2 (48.0-80.0) % Lymph % (Auto) 18.6 (16.0-40.0) % [place] % (Auto) 6.4 (0.0-15.0) % Eos % (Auto) 0.7 (0.0-7.0) % Baso % (Auto) 0.1 (0.0-1.5) % Neut # (Auto) 7.2 H (1.4-5.7) K/uL Lymph # (Auto) 1.8 (0.6-2.4) K/uL [place] # (Auto) 0.6 (0.0-0.8) K/uL Eos # (Auto) 0.1 (0.0-0.7) K/uL Baso # (Auto) 0.0 (0.0-0.1) K/uL Nucleated RBC % 0.0 /100WBC Nucleated RBCs # 0 K/uL Sodium 137 (136-145) mmol/L Potassium 3.6 (3.5-5.1) mmol/L Chloride 103 (98-107) mmol/L Carbon Dioxide 21.5 (21.0-32.0) mmol/L BUN 29 H (7.0-18.0) mg/dL Creatinine 1.2 H (0.6-1.0) mg/dL Est Cr Clr Drug Dosing 31.78 mL/min Estimated GFR (MDRD) 44.5 ml/min Glucose 97 (74-106) mg/dL Calcium 9.1 (8.5-10.1) mg/dL Total Bilirubin 0.2 (0.2-1.0) mg/dL AST 12 L (15-37) IU/L ALT 27 (14-63) IU/L Alkaline Phosphatase 75 (46-116) U/L Total Protein 6.3 L (6.4-8.2) g/dL Albumin 3.5 (3.4-5.0) g/dL Globulin 2.8 (2.6-4.0) g/dL Albumin/Globulin Ratio 1.2 (0.9-1.6) Urine Color YELLOW Urine Appearance SLT CLOUDY Urine pH 5.5 (5.0-8.0) Ur Specific [place] 1.010 (1.001-1.035) Urine Protein NEGATIVE (NEGATIVE) mg/dL Urine Glucose (UA) NEGATIVE (NEGATIVE) mg/dL Urine Ketones NEGATIVE (NEGATIVE) mg/dL Urine Occult Blood TRACE-INTACT H (NEGATIVE) Urine Nitrite NEGATIVE (NEGATIVE) Urine Bilirubin NEGATIVE (NEGATIVE) Urine Urobilinogen 0.2 (<2.0) EU/dL Ur Leukocyte Esterase SMALL H (NEGATIVE) Urine RBC 1-3 (0-2/HPF) Urine WBC 2-4 (0-5/HPF) Ur Epithelial Cells RARE (NONE-FEW) Urine Bacteria FEW (NEGATIVE) Meds: Medications Generic Name Dose Route Start Last Admin Trade Name Freq PRN Reason Stop Dose Admin Acetaminophen 650 mg 03/08/19 17:54 03/09/19 08:34 Tylenol PO 650 mg Q4H PRN Administration Pain (Mild 1-3)/fever Enoxaparin Sodium 40 mg 03/08/19 18:00 03/08/19 18:41 Lovenox SUBCUT 40 mg Q24H ABBIE Administration Levothyroxine Sodium 100 mcg 03/10/19 07:30 Levothyroxine PO ACBREAKFAST ABBIE Losartan Potassium 100 mg 03/09/19 09:00 03/09/19 08:36 Cozaar PO 100 mg DAILY ABBIE Administration Ondansetron HCl 4 mg 03/08/19 17:54 Zofran Odt PO Q4H PRN nausea, able to take PO Ondansetron HCl 4 mg 03/08/19 17:54 Zofran IVPUSH Q4H PRN Nausea Triamterene/HCTZ 1 each 03/09/19 09:00 03/09/19 08:33 Maxzide 25-37.5 Mg PO 1 each DAILY ABBIE Administration Discontinued Medications Generic Name Dose Route Start Last Admin Trade Name Freq PRN Reason Stop Dose Admin Al Hydroxide/Mg Hydroxide 15 0 ml 03/09/19 09:19 03/09/19 09:57 ml/ Lidocaine HCl 5 ml PO 03/09/19 09:20 30 each ONETIME ONE Administration Sodium Chloride 1,000 mls @ 999 mls/hr 03/08/19 15:37 03/08/19 15:51 Normal Saline IV 03/08/19 16:37 999 mls/hr STAT ONE Administration Sodium Chloride 1,000 mls @ 125 mls/hr 03/08/19 17:38 03/08/19 17:52 Normal Saline IV 03/09/19 01:37 125 mls/hr STAT ONE Administration Sodium Chloride 1,000 mls @ 100 mls/hr 03/08/19 18:00 03/09/19 01:30 Normal Saline IV 100 mls/hr STAT ABBIE Administration Ketorolac Tromethamine 30 mg 03/08/19 15:55 03/08/19 16:28 Toradol IVPUSH 03/08/19 15:56 Not Given ONETIME ONE Levothyroxine Sodium 100 mcg 03/09/19 08:00 Levothyroxine PO BRK ABBIE Departure - Departure Time of Disposition: 17:37 Disposition: Refer to Observation Clinical Impression: Dehydration, Diarrhea - Discharge Information - My Orders Last 24 Hours: My Active Orders 03/08/19 15:38 Isolation [COMM] Stat 03/08/19 16:50 CULTURE URINE [RM] Stat 03/08/19 17:38 Admission Status [Patient Status] [ADT] Stat 03/09/19 06:20 CULTURE STOOL + CAMPY+SHIGATOX [RM] Stat - Assessment/Plan Last 24 Hours: My Active Orders 03/08/19 15:38 Isolation [COMM] Stat 03/08/19 16:50 CULTURE URINE [RM] Stat 03/08/19 17:38 Admission Status [Patient Status] [ADT] Stat 03/09/19 06:20 CULTURE STOOL + CAMPY+SHIGATOX [RM] Stat
[2019-03-08] MEDS ORDERED: Sodium Chloride 0.9% 1,000 ML IV ONE ×2 (15:37→17:38)
[2019-03-08] MEDS ORDERED: Ketorolac 30 MG/ML SDV IVPUSH ONE (15:55)
[2019-03-08] MEDS ORDERED: Ondansetron 4 MG/2 ML SDV IVPUSH PRN (17:54)
[2019-03-08] MEDS ORDERED: Ondansetron 4 MG Tab.DIS PO PRN (17:54)
[2019-03-08] MEDS ORDERED: Acetaminophen 325 MG Tab PO PRN (17:54)
[2019-03-08] MEDS ORDERED: Sodium Chloride 0.9% 1,000 ML IV SCH (18:00)
[2019-03-08] MEDS ORDERED: Enoxaparin 40 MG/0.4 ML Syringe SUBCUT SCH (18:00)
--- NOTE | 2019-03-08 18:11 | PCM.HP.2 ---
<Fidel Dawkins M - Last Filed: 03/08/19 18:21> H&P History of Present Illness - General Date of Service: 03/08/19 Admit Problem/Dx: Admission Diagnosis/Problem Admission Diagnosis/Problem Dehydration - History of Present Illness Initial Comments - Free Text/Narative: 68-year-old female presents with persistent non-bloody diarrhea for the past 4 weeks. She has a PMH of HTN, hypothyroidism and hyperlipidemia. Patient was seen in the ER approximately one week ago and tested positive for Campylobacter and was started on a course of azithromycin. Patient reports that initially her diarrhea did improve but then worsened again over the past 1-2 days. She reports having 8-10 bowel movements per day. She has not noticed any blood in her stool and denies any abdominal pain. She does report feeling very fatigued and having a decreased appetite. Patient denied having any fevers, chills, blurry vision, shortness of breath, chest pain, nausea, vomiting, numbness or any history of easy bleeding or bruising. In [facility] ER, patient was found to have a creatinine of 1.2. She was started on IV fluids and admitted for further evaluation and treatment. Abdominal Pain Score (Numeric/FACES): 2 - Related Data Allergies/Adverse Reactions: Allergies Allergy/AdvReac Type Severity Reaction Status Date / Time amlodipine Allergy Itching Verified 03/08/19 15:27 Home Medications: Home Meds Fish Oil/[place]-3 Fatty Acids [Fish Oil] 1,000 mg PO DAILY 03/10/14 [History] Levothyroxine 100 mcg PO BRK 03/10/14 [History] Losartan [Cozaar] 100 mg PO DAILY 03/16/14 [History] Triamterene/Hydrochlorothiazid [Triamterene-HCTZ 37.5-25 MG] 1 tab PO DAILY [History] Potassium Chloride 20 meq PO DAILY 08/07/16 [History] Oxybutynin Chloride 5 mg PO BID PRN 08/08/17 [History] Past Medical History HEENT History: Reports: None Other HEENT History: "floaters" Cardiovascular History: Reports: High Cholesterol, Hypertension Respiratory History: Reports: None Gastrointestinal History: Reports: None Genitourinary History: Reports: UTI, Recurrent, Other (See Below) Other Genitourinary History: over active bladder DIRECTOR INFORMATION History: Reports: Polycystic Ovaries, Musculoskeletal History: Reports: Arthritis Neurological History: Reports: None Psychiatric History: Reports: None Endocrine/Metabolic History: Reports: Hypothyroidism, Obesity/BMI 30+ Hematologic History: Reports: Anemia, Blood Transfusion(s) Immunologic History: Reports: None Oncologic (Cancer) History: Reports: None Dermatologic History: Reports: None - Infectious Disease History Infectious Disease History: Reports: Chicken Pox, Measles, Mumps - Past Surgical History Head Surgeries/Procedures: Reports: None HEENT Surgical History: Reports: Tonsillectomy Cardiovascular Surgical History: Reports: None Respiratory Surgical History: Reports: None Female Surgical History: Reports: Breast Biopsy, Hysterectomy, Oophorectomy, Tubal Ligation Endocrine Surgical History: Reports: None Neurological Surgical History: Reports: None Musculoskeletal Surgical History: Reports: Carpal Tunnel, Knee Replacement, Other (See Below) Other Musculoskeletal Surgeries/Procedures:: hammer toe Oncologic Surgical History: Reports: Biopsy of Breast Dermatological Surgical History: Reports: Skin Biopsy Social & Family History - Family History Family Medical History: Noncontributory Cardiac: Reports: Blood Clots/VTE/DVT, Heart Failure Respiratory: Reports: Asthma Musculoskeletal: Reports: Osteoporosis Neurological: Reports: Alzheimers Disease Endocrine/Metabolic: Reports: Osteoporosis Hematologic: Reports: Bleeding Disorder Oncologic: Reports: Bladder - Tobacco Use Smoking Status *Q: Never Smoker - Caffeine Use Caffeine Use: Reports: Coffee - Recreational Drug Use Recreational Drug Use: No H&P Review of Systems - Review of Systems: Review Of Systems: ROS reveals no pertinent complaints other than HPI. Exam - Exam Exam: See Below - Vital Signs Vital Signs: Last Vital Signs Temp 97.2 F 03/08/19 15:27 Pulse 74 03/08/19 15:27 Resp 17 03/08/19 15:27 BP 145/47 H 03/08/19 15:27 Pulse Ox 97 03/08/19 15:27 Weight: 73.936 kg - Exam General: Alert, Oriented, Cooperative HEENT: Conjunctiva Clear, EACs Clear, EOMI, Hearing Intact, Posterior Pharynx Clear, Pupils Equal Neck: Supple, Trachea Midline Lungs: Clear to Auscultation, Normal Respiratory Effort Cardiovascular: Regular Rate, Regular Rhythm GI/Abdominal Exam: Normal Bowel Sounds, Soft, Non-Tender, No Distention Extremities: Normal Inspection, No Pedal Edema Peripheral Pulses: 2+: Posterior Tibial (L), Posterior Tibial (R) Skin: Warm, Dry, Intact Neurological: Cranial Nerves Intact, Strength Equal Bilateral, Normal Speech, Normal Tone, Sensation Intact Psychiatric: Alert, Normal Affect, Normal Mood - Patient Data Lab Results Last 24 hrs: Laboratory Results - last 24 hr 03/08/19 03/08/19 03/08/19 Range/Units 15:54 15:54 16:50 WBC 9.67 (4.0-11.0) K/uL RBC 4.09 L (4.30-5.90) M/uL Hgb 12.7 (12.0-16.0) g/dL Hct 37.0 (36.0-46.0) % MCV 90.5 (80.0-98.0) fL MCH 31.1 (27.0-32.0) pg MCHC 34.3 (31.0-37.0) g/dL RDW Std Deviation 43.5 (28.0-62.0) fl RDW Coeff of Simon 13 (11.0-15.0) % Plt Count 336 (150-400) K/uL MPV 9.30 (7.40-12.00) fL Neut % (Auto) 74.2 (48.0-80.0) % Lymph % (Auto) 18.6 (16.0-40.0) % Cotton % (Auto) 6.4 (0.0-15.0) % Eos % (Auto) 0.7 (0.0-7.0) % Baso % (Auto) 0.1 (0.0-1.5) % Neut # (Auto) 7.2 H (1.4-5.7) K/uL Lymph # (Auto) 1.8 (0.6-2.4) K/uL Cotton # (Auto) 0.6 (0.0-0.8) K/uL Eos # (Auto) 0.1 (0.0-0.7) K/uL Baso # (Auto) 0.0 (0.0-0.1) K/uL Nucleated RBC % 0.0 /100WBC Nucleated RBCs # 0 K/uL Sodium 137 (136-145) mmol/L Potassium 3.6 (3.5-5.1) mmol/L Chloride 103 (98-107) mmol/L Carbon Dioxide 21.5 (21.0-32.0) mmol/L BUN 29 H (7.0-18.0) mg/dL Creatinine 1.2 H (0.6-1.0) mg/dL Est Cr Clr Drug Dosing 31.78 mL/min Estimated GFR (MDRD) 44.5 ml/min Glucose 97 (74-106) mg/dL Calcium 9.1 (8.5-10.1) mg/dL Total Bilirubin 0.2 (0.2-1.0) mg/dL AST 12 L (15-37) IU/L ALT 27 (14-63) IU/L Alkaline Phosphatase 75 (46-116) U/L Total Protein 6.3 L (6.4-8.2) g/dL Albumin 3.5 (3.4-5.0) g/dL Globulin 2.8 (2.6-4.0) g/dL Albumin/Globulin Ratio 1.2 (0.9-1.6) Urine Color YELLOW Urine Appearance SLT CLOUDY Urine pH 5.5 (5.0-8.0) Ur Specific [place] 1.010 (1.001-1.035) Urine Protein NEGATIVE (NEGATIVE) mg/dL Urine Glucose (UA) NEGATIVE (NEGATIVE) mg/dL Urine Ketones NEGATIVE (NEGATIVE) mg/dL Urine Occult Blood TRACE-INTACT H (NEGATIVE) Urine Nitrite NEGATIVE (NEGATIVE) Urine Bilirubin NEGATIVE (NEGATIVE) Urine Urobilinogen 0.2 (<2.0) EU/dL Ur Leukocyte Esterase SMALL H (NEGATIVE) Urine RBC 1-3 (0-2/HPF) Urine WBC 2-4 (0-5/HPF) Ur Epithelial Cells RARE (NONE-FEW) Urine Bacteria FEW (NEGATIVE) Result Diagrams: 03/08/19 15:54 03/08/19 15:54 - Problem List (1) Dehydration SNOMED Code(s): 97535302 ICD Code: E86.0 - DEHYDRATION Status: Acute Current Visit: Yes (2) Diarrhea SNOMED Code(s): 98516199 ICD Code: R19.7 - DIARRHEA, UNSPECIFIED Status: Acute Current Visit: Yes (3) LIANET (acute kidney injury) SNOMED Code(s): 60513241, 15680529 ICD Code: N17.9 - ACUTE KIDNEY FAILURE, UNSPECIFIED Status: Acute Current Visit: Yes (4) Hypertension SNOMED Code(s): 22729816 ICD Code: I10 - ESSENTIAL (PRIMARY) HYPERTENSION Status: Acute Current Visit: Yes Problem List Initiated/Reviewed/Updated: Yes Orders Last 24hrs: Active Orders 24 hr Category Date Time Status Admission Status [Patient Status] [ADT] Stat ADT 03/08/19 17:38 Active Oxygen Therapy [RC] PRN Care 03/08/19 17:55 Active Up ad Tamanna [RC] ASDIRECTED Care 03/08/19 17:54 Active VTE/DVT Education [RC] PER UNIT ROUTINE Care 03/08/19 17:55 Active Vital Signs [RC] Q4H Care 03/08/19 17:55 Active Regular Diet [DIET] Diet 03/08/19 Lunch Active Abdomen Pelvis wo Cont [CT] Stat Exams 03/08/19 15:38 Taken BASIC METABOLIC PANEL,BMP [CHEM] AM Lab 03/09/19 05:11 Ordered CBC WITH AUTO DIFF [HEME] AM Lab 03/09/19 05:11 Ordered CDIFF TOX A+B [OP] Stat Lab 03/08/19 15:38 Ordered CRYPTOSPORIDIUM BY IMMUNOASSAY [MREF] Urgent Lab 03/08/19 17:59 Ordered CULTURE STOOL + CAMPY+SHIGATOX [RM] Stat Lab 03/08/19 15:38 Ordered CULTURE URINE [RM] Stat Lab 03/08/19 16:50 Received GIARDIA ANTIGEN BY IMMUNOASSAY [MREF] Urgent Lab 03/08/19 17:59 Ordered Acetaminophen [Tylenol] Med 03/08/19 17:54 Active 650 mg PO Q4H PRN Enoxaparin [Lovenox] Med 03/08/19 18:00 Active 40 mg SUBCUT Q24H HCTZ/Triamterene [Maxzide 25-37.5 MG] Med 03/09/19 09:00 Active 1 each PO DAILY Levothyroxine Med 03/09/19 08:00 Active 100 mcg PO BRK Losartan Med 03/09/19 09:00 Active 100 mg PO DAILY Ondansetron [Zofran ODT] Med 03/08/19 17:54 Active 4 mg PO Q4H PRN Ondansetron [Zofran] Med 03/08/19 17:54 Active 4 mg IVPUSH Q4H PRN Sodium Chloride 0.9% [Normal Saline] 1,000 ml Med 03/08/19 18:00 Active IV STAT Isolation [COMM] Stat Oth 03/08/19 15:38 Ordered Resuscitation Status Routine Resus Stat 03/08/19 17:54 Ordered Medication Orders Acetaminophen (Tylenol) 650 mg PO Q4H PRN PRN Reason: Pain (Mild 1-3)/fever Enoxaparin Sodium (Lovenox) 40 mg SUBCUT Q24H ABBIE Sodium Chloride (Normal Saline) 1,000 mls @ 100 mls/hr IV STAT ABBIE Levothyroxine Sodium (Levothyroxine) 100 mcg PO BRK ABBIE Non-Formulary Medication (Losartan) 100 mg PO DAILY ABBIE Ondansetron HCl (Zofran Odt) 4 mg PO Q4H PRN PRN Reason: nausea, able to take PO Ondansetron HCl (Zofran) 4 mg IVPUSH Q4H PRN PRN Reason: Nausea Triamterene/HCTZ (Maxzide 25-37.5 Mg) 1 each PO DAILY ABBIE Assessment/Plan Comment:: Assessment: 1. Diarrhea. 2. Acute kidney injury secondary to dehydration. 3. PMH of HTN, hyperlipidemia, hypothyroidism, PCOS and overactive bladder. Plan: 1. For diarrhea, will send stool sample for culture and to test for: C. Diff, Giardia, cryptosporidium and shiga toxin. CT abd is pending. 2. For acute kidney injury, patient received 1 L of fluids in the ER. Will hydrate patient with 100 cc/hr NS maintenance fluids. Will recheck with AM BMP. 3. For past medical history, will continue with home medications. <Jarvis Pop - Last Filed: 03/09/19 09:50> H&P History of Present Illness - General Admit Problem/Dx: Admission Diagnosis/Problem Admission Diagnosis/Problem Dehydration I have seen and evaluated the patient independent of lpn medical assistant, Dr. Mariza MD. I have reviewed and agree with the plan and care as outlined for this patient by him. I have discussed the case with him. Please see orders. Exam - Vital Signs Vital Signs: Last Vital Signs Temp 36.4 C 03/09/19 07:32 Pulse 55 L 03/09/19 07:32 Resp 18 03/09/19 07:32 BP 169/71 H 03/09/19 08:36 Pulse Ox 99 03/09/19 07:32 - Patient Data Lab Results Last 24 hrs: Laboratory Results - last 24 hr 03/08/19 03/08/19 03/08/19 Range/Units 15:54 15:54 16:50 WBC 9.67 (4.0-11.0) K/uL RBC 4.09 L (4.30-5.90) M/uL Hgb 12.7 (12.0-16.0) g/dL Hct 37.0 (36.0-46.0) % MCV 90.5 (80.0-98.0) fL MCH 31.1 (27.0-32.0) pg MCHC 34.3 (31.0-37.0) g/dL RDW Std Deviation 43.5 (28.0-62.0) fl RDW Coeff of Simon 13 (11.0-15.0) % Plt Count 336 (150-400) K/uL MPV 9.30 (7.40-12.00) fL Neut % (Auto) 74.2 (48.0-80.0) % Lymph % (Auto) 18.6 (16.0-40.0) % Cotton % (Auto) 6.4 (0.0-15.0) % Eos % (Auto) 0.7 (0.0-7.0) % Baso % (Auto) 0.1 (0.0-1.5) % Neut # (Auto) 7.2 H (1.4-5.7) K/uL Lymph # (Auto) 1.8 (0.6-2.4) K/uL Cotton # (Auto) 0.6 (0.0-0.8) K/uL Eos # (Auto) 0.1 (0.0-0.7) K/uL Baso # (Auto) 0.0 (0.0-0.1) K/uL Nucleated RBC % 0.0 /100WBC Nucleated RBCs # 0 K/uL Sodium 137 (136-145) mmol/L Potassium 3.6 (3.5-5.1) mmol/L Chloride 103 (98-107) mmol/L Carbon Dioxide 21.5 (21.0-32.0) mmol/L BUN 29 H (7.0-18.0) mg/dL Creatinine 1.2 H (0.6-1.0) mg/dL Est Cr Clr Drug Dosing 31.78 mL/min Estimated GFR (MDRD) 44.5 ml/min Glucose 97 (74-106) mg/dL Calcium 9.1 (8.5-10.1) mg/dL Total Bilirubin 0.2 (0.2-1.0) mg/dL AST 12 L (15-37) IU/L ALT 27 (14-63) IU/L Alkaline Phosphatase 75 (46-116) U/L Troponin I (0.000-0.056) ng/mL Total Protein 6.3 L (6.4-8.2) g/dL Albumin 3.5 (3.4-5.0) g/dL Globulin 2.8 (2.6-4.0) g/dL Albumin/Globulin Ratio 1.2 (0.9-1.6) Urine Color YELLOW Urine Appearance SLT CLOUDY Urine pH 5.5 (5.0-8.0) Ur Specific [place] 1.010 (1.001-1.035) Urine Protein NEGATIVE (NEGATIVE) mg/dL Urine Glucose (UA) NEGATIVE (NEGATIVE) mg/dL Urine Ketones NEGATIVE (NEGATIVE) mg/dL Urine Occult Blood TRACE-INTACT H (NEGATIVE) Urine Nitrite NEGATIVE (NEGATIVE) Urine Bilirubin NEGATIVE (NEGATIVE) Urine Urobilinogen 0.2 (<2.0) EU/dL Ur Leukocyte Esterase SMALL H (NEGATIVE) Urine RBC 1-3 (0-2/HPF) Urine WBC 2-4 (0-5/HPF) Ur Epithelial Cells RARE (NONE-FEW) Urine Bacteria FEW (NEGATIVE) 03/09/19 03/09/19 03/09/19 Range/Units 06:07 06:07 06:07 WBC 6.25 (4.0-11.0) K/uL RBC 3.67 L (4.30-5.90) M/uL Hgb 11.3 L (12.0-16.0) g/dL Hct 33.7 L (36.0-46.0) % MCV 91.8 (80.0-98.0) fL MCH 30.8 (27.0-32.0) pg MCHC 33.5 (31.0-37.0) g/dL RDW Std Deviation 44.7 (28.0-62.0) fl RDW Coeff of Simon 13 (11.0-15.0) % Plt Count 295 (150-400) K/uL MPV 9.40 (7.40-12.00) fL Neut % (Auto) 64.4 (48.0-80.0) % Lymph % (Auto) 26.1 (16.0-40.0) % Cotton % (Auto) 8.2 (0.0-15.0) % Eos % (Auto) 1.1 (0.0-7.0) % Baso % (Auto) 0.2 (0.0-1.5) % Neut # (Auto) 4.0 (1.4-5.7) K/uL Lymph # (Auto) 1.6 (0.6-2.4) K/uL Cotton # (Auto) 0.5 (0.0-0.8) K/uL Eos # (Auto) 0.1 (0.0-0.7) K/uL Baso # (Auto) 0.0 (0.0-0.1) K/uL Nucleated RBC % 0.0 /100WBC Nucleated RBCs # 0 K/uL Sodium 141 (136-145) mmol/L Potassium 3.8 (3.5-5.1) mmol/L Chloride 110 H (98-107) mmol/L Carbon Dioxide 23.7 (21.0-32.0) mmol/L BUN 21 H (7.0-18.0) mg/dL Creatinine 1.0 (0.6-1.0) mg/dL Est Cr Clr Drug Dosing 38.14 mL/min Estimated GFR (MDRD) 55.0 ml/min Glucose 90 (74-106) mg/dL Calcium 8.5 (8.5-10.1) mg/dL Total Bilirubin (0.2-1.0) mg/dL AST (15-37) IU/L ALT (14-63) IU/L Alkaline Phosphatase (46-116) U/L Troponin I < 0.050 (0.000-0.056) ng/mL Total Protein (6.4-8.2) g/dL Albumin (3.4-5.0) g/dL Globulin (2.6-4.0) g/dL Albumin/Globulin Ratio (0.9-1.6) Urine Color Urine Appearance Urine pH (5.0-8.0) Ur Specific [place] (1.001-1.035) Urine Protein (NEGATIVE) mg/dL Urine Glucose (UA) (NEGATIVE) mg/dL Urine Ketones (NEGATIVE) mg/dL Urine Occult Blood (NEGATIVE) Urine Nitrite (NEGATIVE) Urine Bilirubin (NEGATIVE) Urine Urobilinogen (<2.0) EU/dL Ur Leukocyte Esterase (NEGATIVE) Urine RBC (0-2/HPF) Urine WBC (0-5/HPF) Ur Epithelial Cells (NONE-FEW) Urine Bacteria (NEGATIVE) Result Diagrams: 03/09/19 06:07 03/09/19 06:07 [place]rell Results Last 24 hrs: Microbiology 03/09/19 06:20 Clostridium difficile Toxin A & B - Final Stool / Feces Negative for C.Diff Toxin/AG REFERENCE RANGE: NEGATIVE 03/09/19 06:20 Campylobacter Antigen Assay - Final Stool / Feces NEGATIVE CAMPYLOBACTER AG REFERENCE RANGE: NEGATIVE Orders Last 24hrs: Active Orders 24 hr Category Date Time Status Admission Status [Patient Status] [ADT] Stat ADT 03/08/19 17:38 Active Oxygen Therapy [RC] PRN Care 03/08/19 17:55 Active Up ad Tamanna [RC] ASDIRECTED Care 03/08/19 17:54 Active VTE/DVT Education [RC] PER UNIT ROUTINE Care 03/08/19 17:55 Active Vital Signs [RC] Q4H Care 03/08/19 17:55 Active Regular Diet [DIET] Diet 03/08/19 Lunch Active CRYPTOSPORIDIUM BY IMMUNOASSAY [MREF] Urgent Lab 03/08/19 17:59 Received CULTURE STOOL + CAMPY+SHIGATOX [RM] Stat Lab 03/09/19 06:20 Results CULTURE URINE [RM] Stat Lab 03/08/19 16:50 Received GIARDIA ANTIGEN BY IMMUNOASSAY [MREF] Urgent Lab 03/08/19 17:59 Received TROPONIN I [CHEM] Routine Lab 03/09/19 11:00 Ordered Acetaminophen [Tylenol] Med 03/08/19 17:54 Active 650 mg PO Q4H PRN Enoxaparin [Lovenox] Med 03/08/19 18:00 Active 40 mg SUBCUT Q24H HCTZ/Triamterene [Maxzide 25-37.5 MG] Med 03/09/19 09:00 Active 1 each PO DAILY Levothyroxine Med 03/10/19 07:30 Active 100 mcg PO ACBREAKFAST Losartan [Cozaar] Med 03/09/19 09:00 Active 100 mg PO DAILY Ondansetron [Zofran ODT] Med 03/08/19 17:54 Active 4 mg PO Q4H PRN Ondansetron [Zofran] Med 03/08/19 17:54 Active 4 mg IVPUSH Q4H PRN Isolation [COMM] Stat Oth 03/08/19 15:38 Ordered Resuscitation Status Routine Resus Stat 03/08/19 17:54 Ordered Medication Orders Acetaminophen (Tylenol) 650 mg PO Q4H PRN PRN Reason: Pain (Mild 1-3)/fever Last Admin: 03/09/19 08:34 Dose: 650 mg Enoxaparin Sodium (Lovenox) 40 mg SUBCUT Q24H [facility] Last Admin: 03/08/19 18:41 Dose: 40 mg Levothyroxine Sodium (Levothyroxine) 100 mcg PO ACBREAKFAST [facility] Losartan Potassium (Cozaar) 100 mg PO DAILY [facility] Last Admin: 03/09/19 08:36 Dose: 100 mg Ondansetron HCl (Zofran Odt) 4 mg PO Q4H PRN PRN Reason: nausea, able to take PO Ondansetron HCl (Zofran) 4 mg IVPUSH Q4H PRN PRN Reason: Nausea Triamterene/HCTZ (Maxzide 25-37.5 Mg) 1 each PO DAILY [facility] Last Admin: 03/09/19 08:33 Dose: 1 each
--- NOTE | 2019-03-08 18:30 | CT ---
INDICATION: Abdominal pain with diarrhea. COMPARISON: 07/26/2017 TECHNIQUE: CT examination of the abdomen and pelvis was performed without contrast enhancement using 3 mm thick axial sections from the lung bases through the pubic symphysis. Oral contrast was not administered. Please note that all CT scans at this facility use dose modulation, iterative reconstruction, and/or weight-based dosing when appropriate to reduce radiation dose to as low as reasonably achievable. FINDINGS: In the abdomen, the unenhanced liver, spleen, pancreas, and adrenals are normal in appearance. The unenhanced kidneys are normal in appearance. Clips are again seen in the gall bladder fossa from cholecystectomy. The abdominal aorta is normal in caliber with no sign of dilatation. There is no sign of retroperitoneal mass or adenopathy. There is a stable small hiatal hernia. The rest of the stomach, loops of small bowel, and colon in the abdomen are otherwise normal in appearance. In the pelvis, the appendix is nonvisualized, but there is no sign of an inflammatory process in the area of the appendix. The loops of small bowel and colon in the pelvis are normal in appearance. The uterus is absent and the adnexal regions are normal in appearance. The urinary bladder is normal in appearance. There is no sign of pelvic or inguinal mass or adenopathy. Again seen is the noncalcified 2 millimeter nodule along the anterior-lateral minor fissure on axial image 7 series 202. This can be followed using Fleischner society criteria. The lung bases are otherwise clear. There is no change in moderate T12-L1 disc degenerative disease with moderate sclerosis of the vertebral bodies adjacent to the anterior disc space. There is new minimal anterior subluxation of L4 on L5. There is no change in minimal anterior subluxation of L5 on S1. The rest of the lumbar intervertebral discs remain normal in height. IMPRESSION: Nothing seen to correlate with a history of abdominal pain and diarrhea. No sign of any abnormality of the loops of bowel, with no sign of excessive fluid within the colon or small bowel. CT of the abdomen shows no change in a tiny hiatal hernia. Again seen are changes of cholecystectomy. CT of the pelvis shows stable changes status post hysterectomy. Please note that all CT scans at this facility use dose modulation, iterative reconstruction, and/or weight-based dosing when appropriate to reduce radiation dose to as low as reasonably achievable. Dictated by Bradley Gross MD @ Mar 08 2019 6:21PM Signed by Dr. Bradley Gross @ Mar 08 2019 6:29PM
[2019-03-09] MEDS ORDERED: Levothyroxine 125 MCG Tab PO SCH (08:00)
[2019-03-09] MEDS ORDERED: Hydrochlorothiazide/Triamterene 25-37.5 Tab PO SCH (09:00)
[2019-03-09] MEDS ORDERED: Losartan 50 MG Tab PO SCH (09:00)
[2019-03-09] MEDS ORDERED: Alum Hydrox/Mag Hydrox/Simeth 15 ML, Lidocaine 2% 5 ML PO ONE ×2 (09:19)
[2019-03-09 13:15] VITALS: BP 135/62
--- NOTE | 2019-03-09 13:18 | PCM.DCSUM1 ---
<Fidel Dawkins - Last Filed: 03/09/19 13:10> Discharge Summary - Hospital Course Free Text/Narrative:: 68-year-old female admitted for diarrhea and dehydration. Patient reports having diarrhea for the past 4 weeks and has had 8-10 bowel movements per day. She was seen in the ER approximately 1 week ago and tested positive for Campylobacter and started on a course of azithromycin. She reports that her diarrhea improved initially then went back to having 8-10 loose bowel movements per day again. On admission, she was found to have acute kidney injury secondary to dehydration and was started on IV fluids. Stool sample was sent for culture and testing. C. Diff and Campylobacter were negative. Testing for Giardia and cryptosporidium are currently pending. During her hospitalization, patient only had one bowel movement and reports it was more solid in consistency than it had been yesterday. Patient also complained of intermittent overnight, left-sided chest pain, unrelated to activity. EKG showed right bundle branch block which was present on a prior EKG. Troponins were trended and were negative. Patient was given GI cocktail. Patient did not have any more chest pain at time of discharge. Patient discharged with instructions to follow -up with PCP within 1 week. - Discharge Data Discharge Date: 03/09/19 Discharge Disposition: Home, Self-Care 01 Condition: Good - Discharge Diagnosis/Problem(s) (1) Dehydration SNOMED Code(s): 26187120 ICD Code: E86.0 - DEHYDRATION Status: Acute (2) Diarrhea SNOMED Code(s): 36498635 ICD Code: R19.7 - DIARRHEA, UNSPECIFIED Status: Acute (3) LIANET (acute kidney injury) SNOMED Code(s): 87501131, 07466203 ICD Code: N17.9 - ACUTE KIDNEY FAILURE, UNSPECIFIED Status: Acute (4) Hypertension SNOMED Code(s): 34400504 ICD Code: I10 - ESSENTIAL (PRIMARY) HYPERTENSION Status: Acute - Patient Instructions Diet: Regular Diet as Tolerated Activity: As Tolerated Notify Provider of: Fever, Increased Pain, Swelling and Redness, Drainage, Nausea and/or Vomiting - Discharge Plan *PRESCRIPTION DRUG MONITORING PROGRAM REVIEWED*: Not Applicable *COPY OF PRESCRIPTION DRUG MONITORING REPORT IN PATIENT AMBER: Not Applicable Home Medications: Home Meds Fish Oil/[place]-3 Fatty Acids [Fish Oil] 1,000 mg PO DAILY 03/10/14 [History] Levothyroxine 100 mcg PO BRK 03/10/14 [History] Losartan [Cozaar] 100 mg PO DAILY 03/16/14 [History] Triamterene/Hydrochlorothiazid [Triamterene-HCTZ 37.5-25 MG] 1 tab PO DAILY [History] Potassium Chloride 20 meq PO DAILY 08/07/16 [History] Oxybutynin Chloride 5 mg PO BID PRN 08/08/17 [History] Patient Handouts: Viral Gastroenteritis, Adult, [id number], Dehydration, Adult, [id number] Referrals: Tom Diaz MD [Ordering Only Provider] - 03/16/19 8:00 am - Discharge Summary/Plan Comment DC Time >30 min.: No - Patient Data Vitals - Most Recent: Last Vital Signs Temp 97.5 F 03/09/19 07:32 Pulse 55 L 03/09/19 07:32 Resp 18 03/09/19 07:32 BP 169/71 H 03/09/19 08:36 Pulse Ox 99 03/09/19 07:32 Weight - Most Recent: 73.936 kg I&O - Last 24 hours: Intake & Output 03/08/19 03/09/19 03/09/19 22:59 06:59 14:59 Intake Total 1415 360 Output Total 350 Balance 1065 360 Lab Results - Last 24 hrs: Laboratory Results - last 24 hr 03/08/19 03/08/19 03/08/19 Range/Units 15:54 15:54 16:50 WBC 9.67 (4.0-11.0) K/uL RBC 4.09 L (4.30-5.90) M/uL Hgb 12.7 (12.0-16.0) g/dL Hct 37.0 (36.0-46.0) % MCV 90.5 (80.0-98.0) fL MCH 31.1 (27.0-32.0) pg MCHC 34.3 (31.0-37.0) g/dL RDW Std Deviation 43.5 (28.0-62.0) fl RDW Coeff of Simon 13 (11.0-15.0) % Plt Count 336 (150-400) K/uL MPV 9.30 (7.40-12.00) fL Neut % (Auto) 74.2 (48.0-80.0) % Lymph % (Auto) 18.6 (16.0-40.0) % [place] % (Auto) 6.4 (0.0-15.0) % Eos % (Auto) 0.7 (0.0-7.0) % Baso % (Auto) 0.1 (0.0-1.5) % Neut # (Auto) 7.2 H (1.4-5.7) K/uL Lymph # (Auto) 1.8 (0.6-2.4) K/uL [place] # (Auto) 0.6 (0.0-0.8) K/uL Eos # (Auto) 0.1 (0.0-0.7) K/uL Baso # (Auto) 0.0 (0.0-0.1) K/uL Nucleated RBC % 0.0 /100WBC Nucleated RBCs # 0 K/uL Sodium 137 (136-145) mmol/L Potassium 3.6 (3.5-5.1) mmol/L Chloride 103 (98-107) mmol/L Carbon Dioxide 21.5 (21.0-32.0) mmol/L BUN 29 H (7.0-18.0) mg/dL Creatinine 1.2 H (0.6-1.0) mg/dL Est Cr Clr Drug Dosing 31.78 mL/min Estimated GFR (MDRD) 44.5 ml/min Glucose 97 (74-106) mg/dL Calcium 9.1 (8.5-10.1) mg/dL Total Bilirubin 0.2 (0.2-1.0) mg/dL AST 12 L (15-37) IU/L ALT 27 (14-63) IU/L Alkaline Phosphatase 75 (46-116) U/L Troponin I (0.000-0.056) ng/mL Total Protein 6.3 L (6.4-8.2) g/dL Albumin 3.5 (3.4-5.0) g/dL Globulin 2.8 (2.6-4.0) g/dL Albumin/Globulin Ratio 1.2 (0.9-1.6) Urine Color YELLOW Urine Appearance SLT CLOUDY Urine pH 5.5 (5.0-8.0) Ur Specific [place] 1.010 (1.001-1.035) Urine Protein NEGATIVE (NEGATIVE) mg/dL Urine Glucose (UA) NEGATIVE (NEGATIVE) mg/dL Urine Ketones NEGATIVE (NEGATIVE) mg/dL Urine Occult Blood TRACE-INTACT H (NEGATIVE) Urine Nitrite NEGATIVE (NEGATIVE) Urine Bilirubin NEGATIVE (NEGATIVE) Urine Urobilinogen 0.2 (<2.0) EU/dL Ur Leukocyte Esterase SMALL H (NEGATIVE) Urine RBC 1-3 (0-2/HPF) Urine WBC 2-4 (0-5/HPF) Ur Epithelial Cells RARE (NONE-FEW) Urine Bacteria FEW (NEGATIVE) 03/09/19 03/09/19 03/09/19 Range/Units 06:07 06:07 06:07 WBC 6.25 (4.0-11.0) K/uL RBC 3.67 L (4.30-5.90) M/uL Hgb 11.3 L (12.0-16.0) g/dL Hct 33.7 L (36.0-46.0) % MCV 91.8 (80.0-98.0) fL MCH 30.8 (27.0-32.0) pg MCHC 33.5 (31.0-37.0) g/dL RDW Std Deviation 44.7 (28.0-62.0) fl RDW Coeff of Simon 13 (11.0-15.0) % Plt Count 295 (150-400) K/uL MPV 9.40 (7.40-12.00) fL Neut % (Auto) 64.4 (48.0-80.0) % Lymph % (Auto) 26.1 (16.0-40.0) % [place] % (Auto) 8.2 (0.0-15.0) % Eos % (Auto) 1.1 (0.0-7.0) % Baso % (Auto) 0.2 (0.0-1.5) % Neut # (Auto) 4.0 (1.4-5.7) K/uL Lymph # (Auto) 1.6 (0.6-2.4) K/uL [place] # (Auto) 0.5 (0.0-0.8) K/uL Eos # (Auto) 0.1 (0.0-0.7) K/uL Baso # (Auto) 0.0 (0.0-0.1) K/uL Nucleated RBC % 0.0 /100WBC Nucleated RBCs # 0 K/uL Sodium 141 (136-145) mmol/L Potassium 3.8 (3.5-5.1) mmol/L Chloride 110 H (98-107) mmol/L Carbon Dioxide 23.7 (21.0-32.0) mmol/L BUN 21 H (7.0-18.0) mg/dL Creatinine 1.0 (0.6-1.0) mg/dL Est Cr Clr Drug Dosing 38.14 mL/min Estimated GFR (MDRD) 55.0 ml/min Glucose 90 (74-106) mg/dL Calcium 8.5 (8.5-10.1) mg/dL Total Bilirubin (0.2-1.0) mg/dL AST (15-37) IU/L ALT (14-63) IU/L Alkaline Phosphatase (46-116) U/L Troponin I < 0.050 (0.000-0.056) ng/mL Total Protein (6.4-8.2) g/dL Albumin (3.4-5.0) g/dL Globulin (2.6-4.0) g/dL Albumin/Globulin Ratio (0.9-1.6) Urine Color Urine Appearance Urine pH (5.0-8.0) Ur Specific [place] (1.001-1.035) Urine Protein (NEGATIVE) mg/dL Urine Glucose (UA) (NEGATIVE) mg/dL Urine Ketones (NEGATIVE) mg/dL Urine Occult Blood (NEGATIVE) Urine Nitrite (NEGATIVE) Urine Bilirubin (NEGATIVE) Urine Urobilinogen (<2.0) EU/dL Ur Leukocyte Esterase (NEGATIVE) Urine RBC (0-2/HPF) Urine WBC (0-5/HPF) Ur Epithelial Cells (NONE-FEW) Urine Bacteria (NEGATIVE) 03/09/19 Range/Units 11:00 WBC (4.0-11.0) K/uL RBC (4.30-5.90) M/uL Hgb (12.0-16.0) g/dL Hct (36.0-46.0) % MCV (80.0-98.0) fL MCH (27.0-32.0) pg MCHC (31.0-37.0) g/dL RDW Std Deviation (28.0-62.0) fl RDW Coeff of Simon (11.0-15.0) % Plt Count (150-400) K/uL MPV (7.40-12.00) fL Neut % (Auto) (48.0-80.0) % Lymph % (Auto) (16.0-40.0) % [place] % (Auto) (0.0-15.0) % Eos % (Auto) (0.0-7.0) % Baso % (Auto) (0.0-1.5) % Neut # (Auto) (1.4-5.7) K/uL Lymph # (Auto) (0.6-2.4) K/uL [place] # (Auto) (0.0-0.8) K/uL Eos # (Auto) (0.0-0.7) K/uL Baso # (Auto) (0.0-0.1) K/uL Nucleated RBC % /100WBC Nucleated RBCs # K/uL Sodium (136-145) mmol/L Potassium (3.5-5.1) mmol/L Chloride (98-107) mmol/L Carbon Dioxide (21.0-32.0) mmol/L BUN (7.0-18.0) mg/dL Creatinine (0.6-1.0) mg/dL Est Cr Clr Drug Dosing mL/min Estimated GFR (MDRD) ml/min Glucose (74-106) mg/dL Calcium (8.5-10.1) mg/dL Total Bilirubin (0.2-1.0) mg/dL AST (15-37) IU/L ALT (14-63) IU/L Alkaline Phosphatase (46-116) U/L Troponin I < 0.050 (0.000-0.056) ng/mL Total Protein (6.4-8.2) g/dL Albumin (3.4-5.0) g/dL Globulin (2.6-4.0) g/dL Albumin/Globulin Ratio (0.9-1.6) Urine Color Urine Appearance Urine pH (5.0-8.0) Ur Specific [place] (1.001-1.035) Urine Protein (NEGATIVE) mg/dL Urine Glucose (UA) (NEGATIVE) mg/dL Urine Ketones (NEGATIVE) mg/dL Urine Occult Blood (NEGATIVE) Urine Nitrite (NEGATIVE) Urine Bilirubin (NEGATIVE) Urine Urobilinogen (<2.0) EU/dL Ur Leukocyte Esterase (NEGATIVE) Urine RBC (0-2/HPF) Urine WBC (0-5/HPF) Ur Epithelial Cells (NONE-FEW) Urine Bacteria (NEGATIVE) KAREN Results - Last 24 hrs: Microbiology 03/09/19 06:20 Clostridium difficile Toxin A & B - Final Stool / Feces Negative for C.Diff Toxin/AG REFERENCE RANGE: NEGATIVE 03/09/19 06:20 Campylobacter Antigen Assay - Final Stool / Feces NEGATIVE CAMPYLOBACTER AG REFERENCE RANGE: NEGATIVE Med Orders - Current: Current Medications Acetaminophen (Tylenol) 650 mg PO Q4H PRN PRN Reason: Pain (Mild 1-3)/fever Last Admin: 03/09/19 08:34 Dose: 650 mg Enoxaparin Sodium (Lovenox) 40 mg SUBCUT Q24H [facility] Last Admin: 03/08/19 18:41 Dose: 40 mg Levothyroxine Sodium (Levothyroxine) 100 mcg PO ACBREAKFAST [facility] Losartan Potassium (Cozaar) 100 mg PO DAILY [facility] Last Admin: 03/09/19 08:36 Dose: 100 mg Ondansetron HCl (Zofran Odt) 4 mg PO Q4H PRN PRN Reason: nausea, able to take PO Ondansetron HCl (Zofran) 4 mg IVPUSH Q4H PRN PRN Reason: Nausea Triamterene/HCTZ (Maxzide 25-37.5 Mg) 1 each PO DAILY [facility] Last Admin: 03/09/19 08:33 Dose: 1 each Discontinued Medications Al Hydroxide/Mg Hydroxide 15 (ml/ Lidocaine HCl 5 ml) 0 ml PO ONETIME ONE Stop: 03/09/19 09:20 Last Admin: 03/09/19 09:57 Dose: 30 each Sodium Chloride (Normal Saline) 1,000 mls @ 999 mls/hr IV STAT ONE Stop: 03/08/19 16:37 Last Admin: 03/08/19 15:51 Dose: 999 mls/hr Sodium Chloride (Normal Saline) 1,000 mls @ 125 mls/hr IV STAT ONE Stop: 03/09/19 01:37 Last Admin: 03/08/19 17:52 Dose: 125 mls/hr Sodium Chloride (Normal Saline) 1,000 mls @ 100 mls/hr IV STAT ABBIE Last Admin: 03/09/19 01:30 Dose: 100 mls/hr Ketorolac Tromethamine (Toradol) 30 mg IVPUSH ONETIME ONE Stop: 03/08/19 15:56 Last Admin: 03/08/19 16:28 Dose: Not Given Levothyroxine Sodium (Levothyroxine) 100 mcg PO BRK ABBIE <Jarvis Pop M - Last Filed: 03/09/19 17:47> Discharge Summary - Hospital Course Free Text/Narrative:: I have seen and evaluated the patient independent of certified ophthalmic medical technician, Dr. Mariza MD. I have reviewed and agree with the plan and care as outlined for this patient by him. I have discussed the case with him. Please see orders. - Patient Data Vitals - Most Recent: Last Vital Signs Temp 36.1 C 03/09/19 11:00 Pulse 50 L 03/09/19 11:00 Resp 18 03/09/19 11:00 BP 135/62 03/09/19 11:00 Pulse Ox 100 03/09/19 11:00 I&O - Last 24 hours: Intake & Output 03/09/19 03/09/19 03/09/19 06:59 14:59 22:59 Intake Total 1415 2180 Output Total 350 950 Balance 1065 1230 Lab Results - Last 24 hrs: Laboratory Results - last 24 hr 03/09/19 03/09/19 03/09/19 Range/Units 06:07 06:07 06:07 WBC 6.25 (4.0-11.0) K/uL RBC 3.67 L (4.30-5.90) M/uL Hgb 11.3 L (12.0-16.0) g/dL Hct 33.7 L (36.0-46.0) % MCV 91.8 (80.0-98.0) fL MCH 30.8 (27.0-32.0) pg MCHC 33.5 (31.0-37.0) g/dL RDW Std Deviation 44.7 (28.0-62.0) fl RDW Coeff of Simon 13 (11.0-15.0) % Plt Count 295 (150-400) K/uL MPV 9.40 (7.40-12.00) fL Neut % (Auto) 64.4 (48.0-80.0) % Lymph % (Auto) 26.1 (16.0-40.0) % [place] % (Auto) 8.2 (0.0-15.0) % Eos % (Auto) 1.1 (0.0-7.0) % Baso % (Auto) 0.2 (0.0-1.5) % Neut # (Auto) 4.0 (1.4-5.7) K/uL Lymph # (Auto) 1.6 (0.6-2.4) K/uL [place] # (Auto) 0.5 (0.0-0.8) K/uL Eos # (Auto) 0.1 (0.0-0.7) K/uL Baso # (Auto) 0.0 (0.0-0.1) K/uL Nucleated RBC % 0.0 /100WBC Nucleated RBCs # 0 K/uL Sodium 141 (136-145) mmol/L Potassium 3.8 (3.5-5.1) mmol/L Chloride 110 H (98-107) mmol/L Carbon Dioxide 23.7 (21.0-32.0) mmol/L BUN 21 H (7.0-18.0) mg/dL Creatinine 1.0 (0.6-1.0) mg/dL Est Cr Clr Drug Dosing 38.14 mL/min Estimated GFR (MDRD) 55.0 ml/min Glucose 90 (74-106) mg/dL Calcium 8.5 (8.5-10.1) mg/dL Troponin I < 0.050 (0.000-0.056) ng/mL 03/09/19 Range/Units 11:00 WBC (4.0-11.0) K/uL RBC (4.30-5.90) M/uL Hgb (12.0-16.0) g/dL Hct (36.0-46.0) % MCV (80.0-98.0) fL MCH (27.0-32.0) pg MCHC (31.0-37.0) g/dL RDW Std Deviation (28.0-62.0) fl RDW Coeff of Simon (11.0-15.0) % Plt Count (150-400) K/uL MPV (7.40-12.00) fL Neut % (Auto) (48.0-80.0) % Lymph % (Auto) (16.0-40.0) % [place] % (Auto) (0.0-15.0) % Eos % (Auto) (0.0-7.0) % Baso % (Auto) (0.0-1.5) % Neut # (Auto) (1.4-5.7) K/uL Lymph # (Auto) (0.6-2.4) K/uL [place] # (Auto) (0.0-0.8) K/uL Eos # (Auto) (0.0-0.7) K/uL Baso # (Auto) (0.0-0.1) K/uL Nucleated RBC % /100WBC Nucleated RBCs # K/uL Sodium (136-145) mmol/L Potassium (3.5-5.1) mmol/L Chloride (98-107) mmol/L Carbon Dioxide (21.0-32.0) mmol/L BUN (7.0-18.0) mg/dL Creatinine (0.6-1.0) mg/dL Est Cr Clr Drug Dosing mL/min Estimated GFR (MDRD) ml/min Glucose (74-106) mg/dL Calcium (8.5-10.1) mg/dL Troponin I < 0.050 (0.000-0.056) ng/mL KAREN Results - Last 24 hrs: Microbiology 03/09/19 06:20 Clostridium difficile Toxin A & B - Final Stool / Feces Negative for C.Diff Toxin/AG REFERENCE RANGE: NEGATIVE 03/09/19 06:20 Campylobacter Antigen Assay - Final Stool / Feces NEGATIVE CAMPYLOBACTER AG REFERENCE RANGE: NEGATIVE Med Orders - Current: Current Medications Discontinued Medications Acetaminophen (Tylenol) 650 mg PO Q4H PRN PRN Reason: Pain (Mild 1-3)/fever Last Admin: 03/09/19 08:34 Dose: 650 mg Al Hydroxide/Mg Hydroxide 15 (ml/ Lidocaine HCl 5 ml) 0 ml PO ONETIME ONE Stop: 03/09/19 09:20 Last Admin: 03/09/19 09:57 Dose: 30 each Enoxaparin Sodium (Lovenox) 40 mg SUBCUT Q24H [facility] Last Admin: 03/08/19 18:41 Dose: 40 mg Sodium Chloride (Normal Saline) 1,000 mls @ 999 mls/hr IV STAT ONE Stop: 03/08/19 16:37 Last Admin: 03/08/19 15:51 Dose: 999 mls/hr Sodium Chloride (Normal Saline) 1,000 mls @ 125 mls/hr IV STAT ONE Stop: 03/09/19 01:37 Last Admin: 03/08/19 17:52 Dose: 125 mls/hr Sodium Chloride (Normal Saline) 1,000 mls @ 100 mls/hr IV STAT [facility] Last Admin: 03/09/19 01:30 Dose: 100 mls/hr Ketorolac Tromethamine (Toradol) 30 mg IVPUSH ONETIME ONE Stop: 03/08/19 15:56 Last Admin: 03/08/19 16:28 Dose: Not Given Levothyroxine Sodium (Levothyroxine) 100 mcg PO BRK [facility] Levothyroxine Sodium (Levothyroxine) 100 mcg PO ACBREAKFAST [facility] Losartan Potassium (Cozaar) 100 mg PO DAILY [facility] Last Admin: 03/09/19 08:36 Dose: 100 mg Ondansetron HCl (Zofran Odt) 4 mg PO Q4H PRN PRN Reason: nausea, able to take PO Ondansetron HCl (Zofran) 4 mg IVPUSH Q4H PRN PRN Reason: Nausea Triamterene/HCTZ (Maxzide 25-37.5 Mg) 1 each PO DAILY [facility] Last Admin: 03/09/19 08:33 Dose: 1 each
[2019-03-10] MEDS ORDERED: Levothyroxine 125 MCG Tab PO SCH (07:30)
== END 2019-03-09 13:25 | disposition home or self-care (01) ==
LOC: MW.ED 15:21 → MW.MS 17:54
PROVIDERS: ADMIT Internal Medicine; ATTEND Internal Medicine
DX: E86.0 Dehydration (principal); R19.7 Diarrhea, unspecified; N17.9 Acute kidney failure, unspecified; I10 Essential (primary) hypertension; E03.9 Hypothyroidism, unspecified; E78.00 Pure hypercholesterolemia, unspecified; E66.9 Obesity, unspecified; Z68.32 Body mass index [BMI] 32.0-32.9, adult; Z79.899 Other long term (current) drug therapy; Z88.8 Allergy status to other drugs, medicaments and biological substances
CPT/HCPCS: 36415; 74176; 80048; 80053; 81001; 84484; 85025; 87046; 87086; 87324; 87328; 87329; 87899; 93005; 96360; 96361; 96372; 99285; A9270; G0378; J1650; J7040

== ENCOUNTER 2019-04-26 10:08 | Day surgery (SDC) | payer MEDICARE, OTHER ==
[~2019-04-26 10:08] MED LIST changes: +Lidocaine 2% 5 ML SDV ONE; +Propofol 200 MG/20 ML SDV ONE; -ceFAZolin 1 GM in Premix Bag 1 BAG IV SCH; +fentaNYL 100 MCG/2 ML SDV ONE
--- NOTE | 2019-04-26 11:17 | PCM.PREANE ---
Preanesthetic Assessment - Anesthesia/Transfusion/Family Hx Anesthesia History: Prior Anesthesia Without Reaction Other Type of Anesthesia Reaction Comment: Reports history of motion sickness and "do get nauseated w/anesthesia" Family History of Anesthesia Reaction: No Transfusion History: Prior Transfusion Without Reaction - Review of Systems General: No Symptoms Pulmonary: No Symptoms Cardiovascular: No Symptoms Neurological: No Symptoms Other: Reports: None - Physical Assessment NPO Status Date: 04/25/19 NPO Status Time: 19:00 Vital Signs: Last Vital Signs Temp 97.3 F 04/26/19 10:30 Pulse 74 04/26/19 10:30 Resp 16 04/26/19 10:30 BP 130/59 L 04/26/19 10:30 Pulse Ox 100 04/26/19 10:30 Height: 4 ft 11 in Weight: 71.214 kg ASA Class: 2 Mental Status: Alert & Oriented x3 Airway Class: Mallampati = 2 ROM/Head Extension: Full Lungs: Clear to Auscultation, Normal Respiratory Effort Cardiovascular: Regular Rate, Regular Rhythm - Allergies Allergies/Adverse Reactions: Allergies Allergy/AdvReac Type Severity Reaction Status Date / Time amlodipine Allergy Itching Verified 04/21/19 12:37 - Blood Blood Available: No - Anesthesia Plan Pre-Op Medication Ordered: None - Acknowledgements Anesthesia Type Planned: General Anesthesia Pt an Appropriate Candidate for the Planned Anesthesia: Yes Alternatives and Risks of Anesthesia Discussed w Pt/Guardian: Yes Pt/Guardian Understands and Agrees with Anesthesia Plan: Yes Additional Comments: PMH: gerd, htn, thyroid replacement, tinnitus PLAN: tiva PreAnesthesia Questionnaire HEENT History: Reports: Other (See Below) Other HEENT History: reading glasses Cardiovascular History: Reports: Hypertension Respiratory History: Reports: None Gastrointestinal History: Reports: GERD Genitourinary History: Reports: Other (See Below) Other Genitourinary History: over active bladder POOL TECHNICIAN History: Reports: Polycystic Ovaries, Musculoskeletal History: Reports: Osteoarthritis Neurological History: Reports: None Psychiatric History: Reports: None Endocrine/Metabolic History: Reports: Hypothyroidism, Obesity/BMI 30+ Hematologic History: Reports: Anemia, Blood Transfusion(s) Other Hematologic History: transfusion after vaginal delivery Immunologic History: Reports: None Oncologic (Cancer) History: Reports: None Dermatologic History: Reports: None - Infectious Disease History Infectious Disease History: Reports: Chicken Pox, Measles, Mumps, Other (See Below) Other Infectious Disease History: E coli on the stools - Past Surgical History Head Surgeries/Procedures: Reports: None HEENT Surgical History: Reports: Tonsillectomy Cardiovascular Surgical History: Reports: None Respiratory Surgical History: Reports: None GI Surgical History: Reports: Colonoscopy, EGD Female Surgical History: Reports: Breast Biopsy, Hysterectomy, Oophorectomy, Tubal Ligation Endocrine Surgical History: Reports: None Neurological Surgical History: Reports: None Musculoskeletal Surgical History: Reports: Carpal Tunnel, Knee Replacement, Shoulder Surgery, Other (See Below) Other Musculoskeletal Surgeries/Procedures:: hammer toe surgery, ru TKA, shoulder arthroscopy Oncologic Surgical History: Reports: Biopsy of Breast Dermatological Surgical History: Reports: Skin Biopsy - SUBSTANCE USE Smoking Status *Q: Never Smoker Recreational Drug Use History: No - HOME MEDS Home Medications: Home Meds Fish Oil/[place]-3 Fatty Acids [Fish Oil] 1,000 mg PO DAILY 03/10/14 [History] Levothyroxine 100 mcg PO BRK 03/10/14 [History] Losartan [Cozaar] 100 mg PO DAILY 03/16/14 [History] Triamterene/Hydrochlorothiazid [Triamterene-HCTZ 37.5-25 MG] 1 tab PO DAILY [History] Potassium Chloride 20 meq PO DAILY 08/07/16 [History] Oxybutynin Chloride 5 mg PO BID PRN 08/08/17 [History] - CURRENT (IN HOUSE) MEDS Current Meds: Current Medications Lactated Ringer's (Ringers, Lactated) 1,000 mls @ 125 mls/hr IV ASDIRECTED ABBIE Discontinued Medications Fentanyl (Sublimaze) Confirm Administered Dose 100 mcg .ROUTE .STK-MED ONE Stop: 04/26/19 09:51 Lidocaine (Xylocaine-Mpf 2%) Confirm Administered Dose 5 ml .ROUTE .STK-MED ONE Stop: 04/26/19 09:51 Propofol (Diprivan 20 Ml) Confirm Administered Dose 400 mg .ROUTE .STK-MED ONE Stop: 04/26/19 09:51
[2019-04-26] MEDS ORDERED: Lactated Ringers 1,000 ML IV SCH (12:00)
--- NOTE | 2019-04-26 12:01 | PCM.OPNOTE ---
- General Post-Op/Procedure Note Date of Surgery/Procedure: 04/26/19 Operative Procedure(s): Colonoscopy with cold ascending colon polypectomy and random biopsies from the cecum, transverse colon and rectum. Pre Op Diagnosis: Change in bowel habits. Abnormal weight loss. Post-Op Diagnosis: Ascending colon polyp. No acute mucosal abnormalities. Anesthesia Technique: MAC (ASA II) Primary Surgeon: Greg Roberts Condition: Good Free Text/Narrative:: DICTATION [id number] CPT CODE 90744
--- NOTE | 2019-04-26 12:20 | PCM.POSTAN ---
POST ANESTHESIA ASSESSMENT - MENTAL STATUS Mental Status: Alert, Oriented - VITAL SIGNS Vital Signs: Last Vital Signs Temp 97.3 F 04/26/19 10:30 Pulse 60 04/26/19 12:15 Resp 18 04/26/19 12:15 BP 120/57 L 04/26/19 12:15 Pulse Ox 98 04/26/19 12:15 - RESPIRATORY Respiratory Status: Respiratory Rate WNL, Airway Patent, O2 Saturation Stable - CARDIOVASCULAR CV Status: Pulse Rate WNL, Blood Pressure Stable - GASTROINTESTINAL GI Status: No Symptoms - POST OP HYDRATION Hydration Status: Adequate & Stable
[2019-04-26 12:40] VITALS: BP 120/51; PULSE 58
--- NOTE | 2019-04-27 08:34 | OR ---
SURGEON: Greg Roberts M.D. DATE OF PROCEDURE: 04/26/2019 TEST PERFORMED: Colonoscopy with cecal, transverse colon, and rectal biopsies and ascending colon cold polypectomy. ANESTHESIA: MAC. ASA CLASSIFICATION: II. PREOPERATIVE DIAGNOSES: 1. Change in bowel habits. 2. Abnormal weight loss. 3. Chronic diarrhea. POSTOPERATIVE DIAGNOSIS: Ascending colon polyp. No acute inflammatory changes. DESCRIPTION OF PROCEDURE: The patient was taken to the endoscopy room and positioned on the endoscopy table in the left lateral decubitus position. Time-out was called for appropriate identification of the patient and procedure. Monitored anesthesia care was provided. The colonoscope was inserted into the rectum and advanced with minimal difficulty to the cecum, where the colonoscope was retroflexed to visualize the ascending colon from below. The colonoscope was then straightened. With her history of diarrhea and unexplained weight loss, despite not seeing any acute inflammatory changes, multiple biopsies were obtained from the cecum, the transverse colon, and the rectum as the scope was slowly withdrawn. The patient did have one small polyp in the ascending colon and this was, likewise, removed with cold biopsy forceps and sent separately. After retroflexing the colonoscope, it was slowly withdrawn, carefully visualizing the cecum, ascending colon, hepatic flexure, transverse colon, splenic flexure, descending colon, sigmoid colon, and rectum. No acute inflammatory changes or ulcerations were noted anywhere in the lower gastrointestinal tract. With her history as stated above, I did elect to do multiple random biopsies from the cecum, transverse colon, and rectum. There was no evidence of diverticulosis. There was no evidence of acute inflammatory bowel disease, and certainly, there was no mucosal abnormalities grossly. Once the colonoscope was withdrawn to the rectum, it was retroflexed to visualize the anal orifice from above. No tumors or polyps were seen, and there were no acute hemorrhoidal changes. The colonoscope was then straightened, the rectum aspirated, and the colonoscope removed. The patient did tolerate the procedure well and was taken to recovery room in stable condition. THAI VALDES /[id number]
== END 2019-04-26 12:40 | disposition home or self-care (01) ==
LOC: MW.SDS 10:08
PROVIDERS: ATTEND Surgery
DX: K52.839 Microscopic colitis, unspecified (principal); K63.5 Polyp of colon; K21.9 Gastro-esophageal reflux disease without esophagitis; M19.019 Primary osteoarthritis, unspecified shoulder; M17.12 Unilateral primary osteoarthritis, left knee; M17.11 Unilateral primary osteoarthritis, right knee; I10 Essential (primary) hypertension; E03.9 Hypothyroidism, unspecified; Z88.8 Allergy status to other drugs, medicaments and biological substances; Z79.899 Other long term (current) drug therapy; Z90.49 Acquired absence of other specified parts of digestive tract
CPT/HCPCS: 45380; 88305; J2001; J2704; J3010; J7120

== ENCOUNTER 2019-05-06 16:56 | Emergency (ER) | payer MEDICARE, OTHER ==
[2019-05-06] MEDS ORDERED: Sodium Chloride 0.9% 2.5 ML Syringe FLUSH PRN (17:27)
[2019-05-06] MEDS ORDERED: Sodium Chloride 0.9% 10 ML Syringe FLUSH PRN (17:27)
[2019-05-06] MEDS ORDERED: Ondansetron 4 MG/2 ML SDV IVPUSH ONE ×2 (17:27→19:56)
[2019-05-06] MEDS ORDERED: Sodium Chloride 0.9% 1,000 ML IV ONE ×2 (17:35→19:20)
--- NOTE | 2019-05-06 17:41 | EDM.PDOC ---
ED HPI GENERAL MEDICAL PROBLEM - General Chief Complaint: General Stated Complaint: DEHYDRATED Time Seen by Provider: 05/06/19 17:03 Source of Information: Reports: Patient History Limitations: Reports: No Limitations - History of Present Illness INITIAL COMMENTS - FREE TEXT/NARRATIVE: HISTORY AND PHYSICAL: History of present illness: Patient is a 68-year-old female who presents to the ED today with concern of dehydration. Patient states that in March she was seen and evaluated in the ED and had a scan which was unremarkable. Patient states since then she's been having issues with diarrhea since. Patient states that now for the past one week she hasn't been able to eat and drink much and vomits every morning. Patient states all she had to eat yesterday was an egg and half of a cup and vomited that up. Patient states she has been following with the GI specialist and my not who after some lab work today she was dehydrated and needed to come to the ED. Patient states that she has been oriented drink a few cups of water a day. Patient states she continues to have diarrhea since she was evaluated in March. Patient denies fever, chills, chest pain, shortness of breath, or cough. Denies headache, neck stiff ness, change in vision, syncope, or near syncope. Denies nausea, vomiting, abdominal pain, diarrhea, constipation, or dysuria. Has not noted any blood in urine or stool. Patient has been eating and drinking appropriately. Review of systems: As per history of present illness and below otherwise all systems reviewed and negative. Past medical history: As per history of present illness and as reviewed below otherwise noncontributory. Surgical history: As per history of present illness and as reviewed below otherwise noncontributory. Social history: See social history for further information Family history: As per history of present illness and as reviewed below otherwise noncontributory. Physical exam: General: Patient is alert, oriented, and in no acute distress. Patient laying comfortably on exam table. HEENT: Atraumatic, normocephalic, pupils equal and reactive bilaterally, negative for conjunctival pallor or scleral icterus, mucous membranes dry, TMs normal bilaterally, throat clear, neck supple, nontender, trachea midline. No drooling or trismus noted. No meningeal signs. No hot potato voice noted. Lungs: Clear to auscultation, breath sounds equal bilaterally, chest nontender. Heart: S1S2, regular rate and rhythm without overt murmur Abdomen: Soft, nondistended, nontender. Negative for masses or hepatosplenomegaly. Negative for costovertebral tenderness. Pelvis: Stable nontender. Genitourinary: Deferred. Rectal: Deferred. Skin: Intact, warm, dry. No lesions or rashes noted. Extremities: Atraumatic, negative for cords or calf pain. Neurovascular unremarkable. Neuro: Awake, alert, oriented. Cranial nerves II through XII unremarkable. Cerebellum unremarkable. Motor and sensory unremarkable throughout. Exam nonfocal. Notes: Dr. Rendon verbally involved in patient care. Dr. Abreu, [facility] in [place], consulted on patient and accepting of transfer. EMS arranged. Voices understanding and is agreeable to plan of care. Denies any further questions or concerns at this time. Diagnostics: CBC, CMP, UA, stool studies, C. difficile, ova and parasite, lipase, abd/pelvic CT w/o contrast, EKG Therapeutics: Saline, Zofran Impression: Acute Renal Impairment Dehydration Hyponatremia Pancreatitis Plan: 1. Transfer to [facility] via EMS to Dr. Abreu Definitive disposition and diagnosis as appropriate pending reevaluation and review of above. - Related Data Allergies Allergy/AdvReac Type Severity Reaction Status Date / Time amlodipine Allergy Itching Verified 05/06/19 17:12 Home Meds: Home Meds Fish Oil/[place]-3 Fatty Acids [Fish Oil] 1,000 mg PO DAILY 03/10/14 [History] Levothyroxine 112 mcg PO BRK 03/10/14 [History] Losartan [Cozaar] 100 mg PO DAILY 03/16/14 [History] Triamterene/Hydrochlorothiazid [Triamterene-HCTZ 37.5-25 MG] 1 tab PO DAILY [History] Potassium Chloride 20 meq PO DAILY 08/07/16 [History] Olmesartan [Benicar] 60 mg PO DAILY 05/06/19 [History] Pantoprazole [ProTONIX] 40 mg PO DAILY 05/06/19 [History] Vitamin E 400 units PO DAILY 05/06/19 [History] Past Medical History HEENT History: Reports: Impaired Vision, Other (See Below) Other HEENT History: reading glasses Cardiovascular History: Reports: Hypertension Respiratory History: Reports: None Gastrointestinal History: Reports: GERD Genitourinary History: Reports: Other (See Below) Other Genitourinary History: over active bladder 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: Reports: Polycystic Ovaries, Musculoskeletal History: Reports: Osteoarthritis Neurological History: Reports: None Psychiatric History: Reports: None Endocrine/Metabolic History: Reports: Hypothyroidism, Obesity/BMI 30+ Hematologic History: Reports: Anemia, Blood Transfusion(s) Other Hematologic History: transfusion after vaginal delivery Immunologic History: Reports: None Oncologic (Cancer) History: Reports: None Dermatologic History: Reports: None - Infectious Disease History Infectious Disease History: Reports: Chicken Pox, Measles, Mumps, Other (See Below) Other Infectious Disease History: E coli on the stools - Past Surgical History Head Surgeries/Procedures: Reports: None HEENT Surgical History: Reports: Tonsillectomy Cardiovascular Surgical History: Reports: None Respiratory Surgical History: Reports: None GI Surgical History: Reports: Colonoscopy, EGD Female Surgical History: Reports: Breast Biopsy, Hysterectomy, Oophorectomy, Tubal Ligation Endocrine Surgical History: Reports: None Neurological Surgical History: Reports: None Musculoskeletal Surgical History: Reports: Carpal Tunnel, Knee Replacement, Shoulder Surgery, Other (See Below) Other Musculoskeletal Surgeries/Procedures:: hammer toe surgery, ru TKA, shoulder arthroscopy Oncologic Surgical History: Reports: Biopsy of Breast Dermatological Surgical History: Reports: Skin Biopsy Social & Family History - Family History Family Medical History: Noncontributory Cardiac: Reports: Blood Clots/VTE/DVT, Heart Failure Respiratory: Reports: Asthma Musculoskeletal: Reports: Osteoporosis Neurological: Reports: Alzheimers Disease Endocrine/Metabolic: Reports: Osteoporosis Hematologic: Reports: Bleeding Disorder Oncologic: Reports: Bladder - Tobacco Use Smoking Status *Q: Never Smoker - Caffeine Use Caffeine Use: Reports: Coffee, Tea Caffeine Use Comment: daily - Recreational Drug Use Recreational Drug Use: No ED ROS GENERAL - Review of Systems Review Of Systems: ROS reveals no pertinent complaints other than HPI. ED EXAM, GENERAL - Physical Exam Exam: See Below (See dictation) Course - Vital Signs Last Recorded V/S: Last Vital Signs Temp 96.9 F 05/06/19 17:00 Pulse 72 05/06/19 19:04 Resp 16 05/06/19 19:04 BP 101/46 L 05/06/19 17:00 Pulse Ox 99 05/06/19 19:04 - Orders/Labs/Meds Orders: Active Orders 24 hr Category Date Time Status EKG Documentation Completion [RC] STAT Care 05/06/19 17:42 Active CDIFF TOX A+B [OP] Stat Lab 05/06/19 17:27 Ordered CULTURE STOOL + CAMPY+SHIGATOX [RM] Stat Lab 05/06/19 17:27 Ordered OVA & PARASITES BY IMMUNOASSAY [MREF] Stat Lab 05/06/19 17:27 Ordered UA RFX KAREN AND CULT IF INDIC [URIN] Stat Lab 05/06/19 17:27 Ordered Sodium Chloride 0.9% [Normal Saline] 1,000 ml Med 05/06/19 19:20 Ordered IV STAT Sodium Chloride 0.9% [Saline Flush] Med 05/06/19 17:27 Active 10 ml FLUSH ASDIRECTED PRN Sodium Chloride 0.9% [Saline Flush] Med 05/06/19 17:27 Active 2.5 ml FLUSH ASDIRECTED PRN Isolation [COMM] Stat Oth 05/06/19 17:28 Ordered Saline Lock Insert [OM.PC] Stat Oth 05/06/19 17:27 Ordered Medication Orders Sodium Chloride (Normal Saline) 1,000 mls @ 999 mls/hr IV STAT ONE Stop: 05/06/19 20:20 Sodium Chloride (Saline Flush) 10 ml FLUSH ASDIRECTED PRN PRN Reason: Keep Vein Open Last Admin: 05/06/19 17:56 Dose: 10 ml Sodium Chloride (Saline Flush) 2.5 ml FLUSH ASDIRECTED PRN PRN Reason: Keep Vein Open Last Admin: 05/06/19 17:57 Dose: 2.5 ml Labs: Laboratory Tests 05/06/19 05/06/19 Range/Units 17:30 17:30 WBC 5.05 (4.0-11.0) K/uL RBC 3.20 L (4.30-5.90) M/uL Hgb 10.2 L (12.0-16.0) g/dL Hct 28.4 L (36.0-46.0) % MCV 88.8 (80.0-98.0) fL MCH 31.9 (27.0-32.0) pg MCHC 35.9 (31.0-37.0) g/dL RDW Std Deviation 44.1 (28.0-62.0) fl RDW Coeff of Simon 14 (11.0-15.0) % Plt Count 276 (150-400) K/uL MPV 9.50 (7.40-12.00) fL Neut % (Auto) 70.9 (48.0-80.0) % Lymph % (Auto) 15.2 L (16.0-40.0) % [place] % (Auto) 13.3 (0.0-15.0) % Eos % (Auto) 0.4 (0.0-7.0) % Baso % (Auto) 0.2 (0.0-1.5) % Neut # (Auto) 3.6 (1.4-5.7) K/uL Lymph # (Auto) 0.8 (0.6-2.4) K/uL [place] # (Auto) 0.7 (0.0-0.8) K/uL Eos # (Auto) 0.0 (0.0-0.7) K/uL Baso # (Auto) 0.0 (0.0-0.1) K/uL Nucleated RBC % 0.0 /100WBC Nucleated RBCs # 0 K/uL Sodium 123 L (136-145) mmol/L Potassium 3.8 (3.5-5.1) mmol/L Chloride 95 L (98-107) mmol/L Carbon Dioxide 8.7 L (21.0-32.0) mmol/L BUN 45 H (7.0-18.0) mg/dL Creatinine 8.4 H (0.6-1.0) mg/dL Est Cr Clr Drug Dosing 4.54 mL/min Estimated GFR (MDRD) 4.7 ml/min Glucose 98 (74-106) mg/dL Calcium 7.6 L (8.5-10.1) mg/dL Total Bilirubin 0.3 (0.2-1.0) mg/dL AST 21 (15-37) IU/L ALT 35 (14-63) IU/L Alkaline Phosphatase 91 (46-116) U/L Total Protein 6.1 L (6.4-8.2) g/dL Albumin 3.2 L (3.4-5.0) g/dL Globulin 2.9 (2.6-4.0) g/dL Albumin/Globulin Ratio 1.1 (0.9-1.6) Lipase 470 H (73-393) U/L Meds: Medications Generic Name Dose Route Start Last Admin Trade Name Freq PRN Reason Stop Dose Admin Sodium Chloride 1,000 mls @ 999 mls/hr 05/06/19 19:20 Normal Saline IV 05/06/19 20:20 STAT ONE Sodium Chloride 10 ml 05/06/19 17:27 05/06/19 17:56 Saline Flush FLUSH 10 ml ASDIRECTED PRN Administration Keep Vein Open Sodium Chloride 2.5 ml 05/06/19 17:27 05/06/19 17:57 Saline Flush FLUSH 2.5 ml ASDIRECTED PRN Administration Keep Vein Open Discontinued Medications Generic Name Dose Route Start Last Admin Trade Name Freq PRN Reason Stop Dose Admin Sodium Chloride 1,000 mls @ 999 mls/hr 05/06/19 17:35 05/06/19 17:56 Normal Saline IV 05/06/19 18:35 999 mls/hr STAT ONE Administration Ondansetron HCl 4 mg 05/06/19 17:27 05/06/19 17:57 Zofran IVPUSH 05/06/19 17:28 Not Given ONETIME ONE Departure - Departure Time of Disposition: 19:32 Disposition: DC/Tfer to Acute Hospital 02 Clinical Impression: Acute renal impairment, Dehydration, Hyponatremia Pancreatitis Qualifiers: Chronicity: acute Pancreatitis type: unspecified pancreatitis type Acute pancreatitis complication: unspecified Qualified Code(s): K85.90 - Acute pancreatitis without necrosis or infection, unspecified - Discharge Information Referrals: Migel Ledezma MD [Primary Care Provider] - Forms: ED Department Discharge - My Orders Last 24 Hours: My Active Orders 05/06/19 17:27 CDIFF TOX A+B [OP] Stat CULTURE STOOL + CAMPY+SHIGATOX [RM] Stat OVA & PARASITES BY IMMUNOASSAY [MREF] Stat UA RFX KAREN AND CULT IF INDIC [URIN] Stat Sodium Chloride 0.9% [Saline Flush] 10 ml FLUSH ASDIRECTED PRN Sodium Chloride 0.9% [Saline Flush] 2.5 ml FLUSH ASDIRECTED PRN Saline Lock Insert [OM.PC] Stat 05/06/19 17:28 Isolation [COMM] Stat 05/06/19 17:42 EKG Documentation Completion [RC] STAT 05/06/19 19:20 Sodium Chloride 0.9% [Normal Saline] 1,000 ml IV STAT - Assessment/Plan Last 24 Hours: My Active Orders 05/06/19 17:27 CDIFF TOX A+B [OP] Stat CULTURE STOOL + CAMPY+SHIGATOX [RM] Stat OVA & PARASITES BY IMMUNOASSAY [MREF] Stat UA RFX KAREN AND CULT IF INDIC [URIN] Stat Sodium Chloride 0.9% [Saline Flush] 10 ml FLUSH ASDIRECTED PRN Sodium Chloride 0.9% [Saline Flush] 2.5 ml FLUSH ASDIRECTED PRN Saline Lock Insert [OM.PC] Stat 05/06/19 17:28 Isolation [COMM] Stat 05/06/19 17:42 EKG Documentation Completion [RC] STAT 05/06/19 19:20 Sodium Chloride 0.9% [Normal Saline] 1,000 ml IV STAT
[2019-05-06 18:10] LABS: CARBON DIOXIDE,CO2 8.7 mmol/L (21.0-32.0); POTASSIUM,K 3.8 mmol/L (3.5-5.1)
--- NOTE | 2019-05-06 19:12 | CT ---
INDICATION: Abdominal pain, vomiting TECHNIQUE: CT abdomen and pelvis without contrast. COMPARISON: 03/08/2020 FINDINGS: Lower chest: Unremarkable. Liver: Unremarkable. Spleen: Unremarkable. Pancreas: Unremarkable. Gallbladder and bile ducts: Cholecystectomy. Kidneys: Unremarkable. No kidney or ureteral stones and no hydronephrosis. Adrenal glands: Unremarkable. GI tract: Unremarkable. Vascular structures: Unremarkable. Lymph nodes: Sub centimeter aortocaval, azygo-esophageal recess and inguinal adenopathy. Miscellaneous: Small fat containing umbilical hernia. No free air or significant free fluid. Pelvic Organs: Unremarkable. Bones: Left-sided L5 pars defect with grade 1 anterolisthesis L5 over S1. Grade 1 82 cc of L4 over L5. IMPRESSION: No findings to explain the patient`s symptoms. Sub centimeter aortocaval, azygo-esophageal recess in inguinal adenopathy. Dictated by Munir Parsons MD @ 05/06/2019 7:10:30 PM Please note that all CT scans at this facility use dose modulation, iterative reconstruction, and/or weight-based dosing when appropriate to reduce radiation dose to as low as reasonably achievable. Dictated by: Munir Parsons MD @ 05/06/2019 19:10:48 (Electronically Signed)
[2019-05-06] MEDS ORDERED: Ondansetron 4 MG/2 ML SDV ONE (19:55)
[2019-05-06 21:25] VITALS: BP 115/49; PULSE 78
== END 2019-05-06 21:26 ==
LOC: MW.ED 16:56
DX: E86.0 Dehydration (principal); N28.9 Disorder of kidney and ureter, unspecified; E87.1 Hypo-osmolality and hyponatremia; K85.90 Acute pancreatitis without necrosis or infection, unspecified; I10 Essential (primary) hypertension; K21.9 Gastro-esophageal reflux disease without esophagitis; E03.9 Hypothyroidism, unspecified; E66.9 Obesity, unspecified; Z68.31 Body mass index [BMI] 31.0-31.9, adult; Z88.8 Allergy status to other drugs, medicaments and biological substances; Z79.890 Hormone replacement therapy; Z79.899 Other long term (current) drug therapy
CPT/HCPCS: 74176; 80053; 83690; 85025; 93005; 96361; 96374; 99285; J2405; J7040

== ENCOUNTER 2019-09-17 03:47 | Emergency (ER) | payer MEDICARE, OTHER ==
[2019-09-17 04:10] VITALS: BP 173/80; PULSE 66
[2019-09-17] MEDS ORDERED: Sodium Chloride 0.9% 1,000 ML IV SCH (04:15)
--- NOTE | 2019-09-17 04:16 | EDM.PDOC ---
ED HPI GENERAL MEDICAL PROBLEM - General Chief Complaint: Respiratory Problem Stated Complaint: THROUBLE BREATHING Time Seen by Provider: 09/17/19 04:11 Source of Information: Reports: Patient History Limitations: Reports: No Limitations - History of Present Illness INITIAL COMMENTS - FREE TEXT/NARRATIVE: 68-year-old female presents to the emergency room stating she has had shortness of breath and chest tightness for the past 2 to 3 days. Patient's developed a cough today. Patient was seen by her primary care physician and on Augmentin for a throat problem. Patient did not take the medication for fear of making her irritable bowel worse. Denies nose and fever. Duration: Day(s): (3) Location: Reports: Chest Quality: Reports: Pressure Severity: Mild Improves with: Reports: None Worsens with: Reports: None Associated Symptoms: Reports: No Other Symptoms chest discomfort Pain Score (Numeric/FACES): 4 - Related Data Allergies Allergy/AdvReac Type Severity Reaction Status Date / Time amlodipine Allergy Itching Verified 09/17/19 03:53 Home Meds: Home Meds Fish Oil/[place]-3 Fatty Acids [Fish Oil] 1,000 mg PO DAILY 03/10/14 [History] Levothyroxine 112 mcg PO BRK 03/10/14 [History] Losartan [Cozaar] 100 mg PO DAILY 03/16/14 [History] Triamterene/Hydrochlorothiazid [Triamterene-HCTZ 37.5-25 MG] 1 tab PO DAILY [History] Potassium Chloride 20 meq PO DAILY 08/07/16 [History] Olmesartan [Benicar] 60 mg PO DAILY 05/06/19 [History] Pantoprazole [ProTONIX] 40 mg PO DAILY 05/06/19 [History] Vitamin E 400 units PO DAILY 05/06/19 [History] Past Medical History HEENT History: Reports: Impaired Vision, Other (See Below) Other HEENT History: reading glasses Cardiovascular History: Reports: Heart Failure, Hypertension Respiratory History: Reports: None Gastrointestinal History: Reports: GERD Genitourinary History: Reports: Other (See Below) Other Genitourinary History: over active bladder. 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 Hematologic History: Reports: Anemia, Blood Transfusion(s) Other Hematologic History: transfusion after vaginal delivery Immunologic History: Reports: None Oncologic (Cancer) History: Reports: None Dermatologic History: Reports: None - Infectious Disease History Infectious Disease History: Reports: Chicken Pox, Measles, Mumps Other Infectious Disease History: E coli on the stools - Past Surgical History Head Surgeries/Procedures: Reports: None HEENT Surgical History: Reports: Tonsillectomy Cardiovascular Surgical History: Reports: None Respiratory Surgical History: Reports: None GI Surgical History: Reports: Colonoscopy, EGD Female Surgical History: Reports: Breast Biopsy, Hysterectomy, Oophorectomy, Tubal Ligation Endocrine Surgical History: Reports: None Neurological Surgical History: Reports: None Musculoskeletal Surgical History: Reports: Carpal Tunnel, Knee Replacement, Shoulder Surgery, Other (See Below) Other Musculoskeletal Surgeries/Procedures:: hammer toe surgery, ru TKA, shoulder arthroscopy Oncologic Surgical History: Reports: Biopsy of Breast Dermatological Surgical History: Reports: Skin Biopsy Social & Family History - Family History Family Medical History: Noncontributory Cardiac: Reports: Blood Clots/VTE/DVT, Heart Failure Respiratory: Reports: Asthma Musculoskeletal: Reports: Osteoporosis Neurological: Reports: Alzheimers Disease Endocrine/Metabolic: Reports: Osteoporosis Hematologic: Reports: Bleeding Disorder Oncologic: Reports: Bladder - Tobacco Use Smoking Status *Q: Never Smoker - Caffeine Use Caffeine Use: Reports: Coffee Caffeine Use Comment: daily - Recreational Drug Use Recreational Drug Use: No ED ROS GENERAL - Review of Systems Review Of Systems: See Below Constitutional: Reports: No Symptoms HEENT: Reports: No Symptoms. Denies: Contact Lenses, Dental Pain, Eye Pain, Glasses, Rhinitis, Sinus Problem, Vision Change Respiratory: Reports: Shortness of Breath Cardiovascular: Reports: Chest Pain Endocrine: Reports: No Symptoms GI/Abdominal: Reports: No Symptoms : Reports: No Symptoms Musculoskeletal: Reports: No Symptoms Skin: Reports: No Symptoms Neurological: Reports: No Symptoms Psychiatric: Reports: No Symptoms Hematologic/Lymphatic: Reports: No Symptoms Immunologic: Reports: No Symptoms ED EXAM, GENERAL - Physical Exam Exam: See Below Exam Limited By: No Limitations General Appearance: Alert, WD/WN, No Apparent Distress Eye Exam: Bilateral Eye: Normal Fundi, Normal Inspection, PERRL Ears: Normal External Exam, Normal Canal, Normal TMs Ear Exam: Bilateral Ear: Auricle Normal, Canal Normal, TM normal, Other Nose: Normal Inspection Throat/Mouth: Normal Inspection Head: Atraumatic, Normocephalic Neck: Normal Inspection, Supple Respiratory/Chest: No Respiratory Distress, Lungs Clear, No Accessory Muscle Use , Chest Non-Tender Cardiovascular: Normal Peripheral Pulses, Regular Rate, Rhythm, No Edema, No Gallop, No JVD, No Murmur, No Rub GI/Abdominal: Normal Bowel Sounds, Soft, Non-Tender (Female) Exam: Deferred Back Exam: Normal Inspection Extremities: Normal Inspection Neurological: Alert, Oriented, CN II-XII Intact, Abnormal Reflexes Psychiatric: Normal Affect, Normal Mood, Anxious Skin Exam: Warm, Dry, Intact Lymphatic: No Adenopathy Course - Vital Signs Text/Narrative:: 68-year-old female presents emergency room chief complaint of shortness of breath and phlegm in the back of her throat. Patient was given Augmentin by her primary care physician which she did not take. Patient has no chills or fever at this time. Patient's chest x-ray was normal. Patient's cardiac enzymes are normal and EKG is normal. Diagnosis on this patient is URI follow- up with a primary care physician. Last Recorded V/S: Last Vital Signs Temp 96.8 F L 09/17/19 03:50 Pulse 66 09/17/19 04:10 Resp 18 09/17/19 04:10 BP 173/80 H 09/17/19 04:10 Pulse Ox 100 09/17/19 04:10 - Orders/Labs/Meds Orders: Active Orders 24 hr Category Date Time Status Sodium Chloride 0.9% [Normal Saline] 1,000 ml Med 09/17/19 04:15 Active IV ASDIRECTED Medication Orders Sodium Chloride (Normal Saline) 1,000 mls @ 100 mls/hr IV ASDIRECTED ABBIE Last Admin: 09/17/19 04:16 Dose: 100 mls/hr Labs: Laboratory Tests 09/17/19 09/17/19 09/17/19 Range/Units 03:56 03:56 03:56 WBC 6.97 (4.0-11.0) K/uL RBC 3.80 L (4.30-5.90) M/uL Hgb 11.9 L (12.0-16.0) g/dL Hct 35.3 L (36.0-46.0) % MCV 92.9 (80.0-98.0) fL MCH 31.3 (27.0-32.0) pg MCHC 33.7 (31.0-37.0) g/dL RDW Std Deviation 44.5 (28.0-62.0) fl RDW Coeff of Simon 13 (11.0-15.0) % Plt Count 285 (150-400) K/uL MPV 9.60 (7.40-12.00) fL Neut % (Auto) 49.2 (48.0-80.0) % Lymph % (Auto) 35.0 (16.0-40.0) % [place] % (Auto) 12.2 (0.0-15.0) % Eos % (Auto) 3.2 (0.0-7.0) % Baso % (Auto) 0.4 (0.0-1.5) % Neut # (Auto) 3.4 (1.4-5.7) K/uL Lymph # (Auto) 2.4 (0.6-2.4) K/uL [place] # (Auto) 0.9 H (0.0-0.8) K/uL Eos # (Auto) 0.2 (0.0-0.7) K/uL Baso # (Auto) 0.0 (0.0-0.1) K/uL Nucleated RBC % 0.0 /100WBC Nucleated RBCs # 0 K/uL Sodium 141 (136-145) mmol/L Potassium 3.4 L (3.5-5.1) mmol/L Chloride 105 (98-107) mmol/L Carbon Dioxide 27.0 (21.0-32.0) mmol/L BUN 31 H (7.0-18.0) mg/dL Creatinine 1.2 H (0.6-1.0) mg/dL Est Cr Clr Drug Dosing 31.78 mL/min Estimated GFR (MDRD) 44.5 ml/min Glucose 98 (74-106) mg/dL Calcium 9.3 (8.5-10.1) mg/dL Total Bilirubin 0.2 (0.2-1.0) mg/dL AST 15 (15-37) IU/L ALT 20 (14-63) IU/L Alkaline Phosphatase 94 (46-116) U/L Troponin I < 0.050 (0.000-0.056) ng/mL B-Natriuretic Peptide 36 (<100) PG/ML Total Protein 6.6 (6.4-8.2) g/dL Albumin 3.5 (3.4-5.0) g/dL Globulin 3.1 (2.6-4.0) g/dL Albumin/Globulin Ratio 1.1 (0.9-1.6) Meds: Medications Generic Name Dose Route Start Last Admin Trade Name Freq PRN Reason Stop Dose Admin Sodium Chloride 1,000 mls @ 100 mls/hr 09/17/19 04:15 09/17/19 04:16 Normal Saline IV 100 mls/hr ASDIRECTED ABBIE Administration Departure - Departure Time of Disposition: 05:01 Disposition: Home, Self-Care 01 Condition: Good Clinical Impression: Upper respiratory tract infection - Discharge Information Instructions: Upper Respiratory Infection, Adult, [id number] Referrals: Migel Ledezma MD [Primary Care Provider] - Forms: ED Department Discharge Sepsis Event Note - Evaluation Sepsis Screening Result: No Definite Risk - Focused Exam Vital Signs: Vital Signs Temp Pulse Resp BP Pulse Ox 09/17/19 04:10 66 18 173/80 H 100 09/17/19 03:50 96.8 F L 60 18 186/75 H 100 Date Exam was Performed: 09/17/19 Time Exam was Performed: 05:00 - My Orders Last 24 Hours: My Active Orders 09/17/19 04:15 Sodium Chloride 0.9% [Normal Saline] 1,000 ml IV ASDIRECTED - Assessment/Plan Last 24 Hours: My Active Orders 09/17/19 04:15 Sodium Chloride 0.9% [Normal Saline] 1,000 ml IV ASDIRECTED
[2019-09-17 04:30] LABS: BLOOD UREA NITROGEN,BUN 31 mg/dL (7.0-18.0); CHLORIDE,CL 105 mmol/L (98-107); GLUCOSE RANDOM 98 mg/dL (74-106); POTASSIUM,K 3.4 mmol/L (3.5-5.1); SODIUM,NA 141 mmol/L (136-145)
--- NOTE | 2019-09-17 04:53 | CR ---
INDICATION: Chest pain TECHNIQUE: Frontal view of the chest. COMPARISON: None FINDINGS: The lungs are clear. There is no sizable pleural effusion or pneumothorax. The cardiomediastinal silhouette is normal. The visualized osseous structures are unremarkable. IMPRESSION: No acute intrathoracic process. Dictated by Alfreda Salinas MD @ Sep 17 2019 4:52AM Signed by Dr. Alfreda Salinas @ Sep 17 2019 4:52AM
== END 2019-09-17 05:18 | disposition home or self-care (01) ==
LOC: MW.ED 03:47
DX: J06.9 Acute upper respiratory infection, unspecified (principal); I11.0 Hypertensive heart disease with heart failure; I50.9 Heart failure, unspecified; K21.9 Gastro-esophageal reflux disease without esophagitis; M19.90 Unspecified osteoarthritis, unspecified site; E03.9 Hypothyroidism, unspecified; E66.9 Obesity, unspecified; Z68.30 Body mass index [BMI] 30.0-30.9, adult; Z88.8 Allergy status to other drugs, medicaments and biological substances; Z79.899 Other long term (current) drug therapy
CPT/HCPCS: 36415; 71045; 80053; 83880; 84484; 85025; 93005; 96360; 99285; J7030; 99283

== ENCOUNTER 2021-05-25 15:33 | Emergency (ER) | payer MEDICARE, OTHER ==
[2021-05-25 16:12] VITALS: BP 146/70; PULSE 66
== END 2021-05-25 17:26 | disposition left against medical advice (07) ==
LOC: MW.ED 15:33
DX: S61.019A Laceration without foreign body of unspecified thumb without damage to nail, initial encounter (principal); Z53.21 Procedure and treatment not carried out due to patient leaving prior to being seen by health care provider

== ENCOUNTER 2022-08-22 22:51 | Emergency (ER) | payer MEDICARE, OTHER ==
[2022-08-22] MEDS ORDERED: Acetaminophen 500 MG Tab PO ONE (23:03)
[2022-08-23] MEDS ORDERED: Sodium Chloride 0.9% 2.5 ML Syringe FLUSH PRN (00:26)
[2022-08-23] MEDS ORDERED: Sodium Chloride 0.9% 10 ML Syringe FLUSH PRN (00:26)
[2022-08-23 01:00] LABS: CARBON DIOXIDE,CO2 23.7 mmol/L (21.0-32.0); POTASSIUM,K 3.6 mmol/L (3.5-5.1)
[2022-08-23] MEDS ORDERED: Sodium Chloride 0.9% 1,000 ML IV ONE (01:46)
[2022-08-23] MEDS ORDERED: Acetaminophen 325 MG Tab PO ONE (05:16)
[2022-08-23] MEDS ORDERED: Acetaminophen 500 MG Tab PO ONE (05:20)
[2022-08-23 07:11] VITALS: BP 104/58; PULSE 71
== END 2022-08-23 07:13 | disposition home or self-care (01) ==
LOC: MW.ED 22:51
DX: S80.12XA Contusion of left lower leg, initial encounter (principal); I11.0 Hypertensive heart disease with heart failure; I50.9 Heart failure, unspecified; Z88.8 Allergy status to other drugs, medicaments and biological substances; Z79.82 Long term (current) use of aspirin; Z79.899 Other long term (current) drug therapy; W01.198A Fall on same level from slipping, tripping and stumbling with subsequent striking against other object, initial encounter
CPT/HCPCS: 36415; 73590; 80053; 83735; 84484; 85025; 85027; 93005; 96360; 99284; A9270; J3490; J7030; 99283

== ENCOUNTER 2024-07-29 17:22 | Observation (INO) | payer MEDICARE, OTHER ==
[2024-07-29 17:46] LABS: BASOPHILS ABSOLUTE AUTO 0.03 K/uL (0.00-0.20); BASOPHILS PERCENT AUTO 0.5 % (0.0-1.0); HEMATOCRIT 41.5 % (37.0-47.0); HEMOGLOBIN 14.1 g/dL (12.0-16.0); IMMATURE GRAN ABSOLUTE AUTO 0.02 K/uL (0.00-0.05); IMMATURE GRAN PERCENT AUTO 0.3 % (0.0-0.4); LYMPHOCYTES ABSOLUTE AUTO 0.67 K/uL (1.00-4.80); LYMPHOCYTES PERCENT AUTO 11.1 % (24.0-44.0); MEAN CORPUSCULAR HEMOGLOBIN 31.1 pg (28.0-32.0); MEAN CORPUSCULAR VOLUME 91.6 fL (83.0-99.0); MEAN PLATELET VOLUME 9.1 fL (9.4-12.3); MONOCYTES PERCENT AUTO 1.7 % (0.0-8.0); NEUTROPHILS ABSOLUTE AUTO 5.21 K/uL (1.80-7.70); NEUTROPHILS PERCENT AUTO 86.4 % (41.0-71.0); PLATELET COUNT,PLT 253 K/uL (150-400); RED BLOOD CELL COUNT 4.53 M/uL (4.10-5.30); WHITE BLOOD CELL COUNT,WBC 6.03 K/uL (3.9-11.3)
[2024-07-29 17:55] LABS: INR 1.04 (0.86-1.11); PTT,PARTIAL THROMBOPLSTIN TIME 27.3 SEC (23.9-30.7)
[2024-07-29] MEDS: Iopamidol 755 Mg/ML 100 ML Bottle IVPUSH STA (17:55)
[2024-07-29 18:16] LABS: A/G RATIO 1.1 (0.9-1.6); ALANINE AMINOTRANSFERASE,ALT 34 IU/L (14-63); ALBUMIN 4.1 g/dL (3.4-5.0); ALKALINE PHOSPHATASE 97 U/L (46-116); ASPARTATE AMNIOTRANSFERASE,AST 32 IU/L (15-37); BILIRUBIN TOTAL 0.4 mg/dL (0.2-1.0); BLOOD UREA NITROGEN,BUN 14 mg/dL (7.0-18.0); CALCIUM 9.6 mg/dL (8.5-10.1); CARBON DIOXIDE,CO2 26.3 mmol/L (21.0-32.0); CHLORIDE,CL 100 mmol/L (98-107); CREATININE 0.9 mg/dL (0.6-1.0); ETHANOL BLOOD MEDICAL <3 mg/dL; GLUCOSE RANDOM 112 mg/dL (74-106); POTASSIUM,K 3.9 mmol/L (3.5-5.1); PROTEIN TOTAL,TP 7.9 g/dL (6.4-8.2); SODIUM,NA 136 mmol/L (136-145)
[2024-07-29 18:19] LABS: ESTIMATED GFR 67 mL/min (>60)
[2024-07-29 18:49] LABS: APPEARANCE,URINE CLEAR; BILIRUBIN,URINE NEGATIVE (NEGATIVE); COLOR,URINE YELLOW; GLUCOSE,URINE NEGATIVE (NEGATIVE); KETONES,URINE NEGATIVE (NEGATIVE); LEUKOCYTE ESTERASE,URINE NEGATIVE (NEGATIVE); NITRITE,URINE NEGATIVE (NEGATIVE); OCCULT BLOOD,URINE NEGATIVE (NEGATIVE); PROTEIN,URINE NEGATIVE (NEGATIVE); UROBILINOGEN,URINE 0.2 EU/dL (<2.0)
[2024-07-29] MEDS ORDERED: Polyethylene Glycol 3350 Powder 17 GM Packet PO PRN (18:49)
[2024-07-29] MEDS ORDERED: Melatonin 3 MG Tab PO PRN (18:49)
[2024-07-29] MEDS ORDERED: Ondansetron 4 MG/2 ML SDV IVPUSH PRN (18:49)
[2024-07-29] MEDS ORDERED: Acetaminophen 650 MG Supp RECTAL PRN (18:49)
[2024-07-29] MEDS ORDERED: Acetaminophen 325 MG Tab PO PRN (18:49)
[2024-07-29 18:59] LABS: AMPHETAMINES SCREEN, URINE NEGATIVE (CUTOFF=500); BARBITURATE SCREEN,URINE NEGATIVE (CUTOFF=200); BENZODIAZEPINES SCREEN,URINE NEGATIVE (CUTOFF=150); BUPRENORPHINE SCREEN,URINE NEGATIVE (CUTOFF=10); METHADONE SCREEN, URINE NEGATIVE (CUTOFF=200); METHAMPHETAMINES SCREEN, URINE NEGATIVE (CUTOFF=500); OXYCODONE SCREEN,URINE NEGATIVE (CUT0FF=100); PCP SCREEN,URINE NEGATIVE (CUTOFF=25); THC SCREEN,URINE 20 NG/ML NEGATIVE (CUTOFF=50)
[2024-07-29] MEDS: cloNIDine 0.1 MG Tab PO ONE (19:07)
[2024-07-29] MEDS: Aspirin 81 MG Tab.Chew PO ONE (19:07)
[2024-07-29 19:10] LABS: HEMOGLOBIN A1C 5.4 %
[2024-07-29] MEDS ORDERED: Iopamidol 755 Mg/ML 100 ML Bottle IVPUSH STA (19:28)
[2024-07-29 19:50] LABS: FOLIC ACID 22.6 ng/mL (8.60-58.90); TSH ULTRASENSITIVE 0.83 uIU/mL (0.36-3.74)
[2024-07-29] MEDS: atorvaSTATin 20 MG Tab PO SCH (21:07)
[2024-07-30 06:00] LABS: BASOPHILS ABSOLUTE AUTO 0.01 K/uL (0.00-0.20); BASOPHILS PERCENT AUTO 0.1 % (0.0-1.0); HEMATOCRIT 35.5 % (37.0-47.0); HEMOGLOBIN 12.2 g/dL (12.0-16.0); IMMATURE GRAN ABSOLUTE AUTO 0.03 K/uL (0.00-0.05); IMMATURE GRAN PERCENT AUTO 0.4 % (0.0-0.4); LYMPHOCYTES ABSOLUTE AUTO 0.63 K/uL (1.00-4.80); LYMPHOCYTES PERCENT AUTO 7.5 % (24.0-44.0); MEAN CORPUSCULAR HEMOGLOBIN 30.8 pg (28.0-32.0); MEAN CORPUSCULAR HGB CONC 34.4 g/dL (32.0-36.0); MEAN CORPUSCULAR VOLUME 89.6 fL (83.0-99.0); MEAN PLATELET VOLUME 9.2 fL (9.4-12.3); MONOCYTES ABSOLUTE AUTO 0.11 K/uL (0.00-0.80); MONOCYTES PERCENT AUTO 1.3 % (0.0-8.0); NEUTROPHILS ABSOLUTE AUTO 7.57 K/uL (1.80-7.70); NEUTROPHILS PERCENT AUTO 90.7 % (41.0-71.0); PLATELET COUNT,PLT 261 K/uL (150-400); RED BLOOD CELL COUNT 3.96 M/uL (4.10-5.30); WHITE BLOOD CELL COUNT,WBC 8.35 K/uL (3.9-11.3)
[2024-07-30 06:28] LABS: CALCIUM 9.1 mg/dL (8.5-10.1); CARBON DIOXIDE,CO2 23.9 mmol/L (21.0-32.0); CREATININE 0.8 mg/dL (0.6-1.0); EST CRCL DRUG DOSING (CG) 44.31 mL/min; MAGNESIUM 2.4 mg/dL (1.8-2.4)
[2024-07-30] MEDS: Aspirin 81 MG Tab.Chew PO SCH (09:08)
[2024-07-30] MEDS: Gadoteridol 279.3 MG/ML 20 ML SDV IVPUSH ONE (11:04)
[2024-07-30 15:16] VITALS: BP 131/63; PULSE 63
== END 2024-07-30 15:16 | disposition home or self-care (01) ==
LOC: MW.ED 17:22 → MW.MS 18:48
PROVIDERS: ADMIT Family Medicine; ATTEND Family Medicine
DX: R20.2 Paresthesia of skin (principal); I10 Essential (primary) hypertension; E03.9 Hypothyroidism, unspecified; E66.9 Obesity, unspecified; I11.0 Hypertensive heart disease with heart failure; I50.9 Heart failure, unspecified; E78.5 Hyperlipidemia, unspecified; Z68.30 Body mass index [BMI] 30.0-30.9, adult; Z20.822 Contact with and (suspected) exposure to COVID-19; Z79.82 Long term (current) use of aspirin; Z79.899 Other long term (current) drug therapy; Z79.890 Hormone replacement therapy; Z88.8 Allergy status to other drugs, medicaments and biological substances
CPT/HCPCS: 36415; 70450; 70496; 70498; 70553; 80048; 80053; 80061; 80305; 80307; 81003; 82607; 82746; 83036; 83735; 84443; 84484; 85025; 85610; 85730; 87428; 93005; 93306; 99285; A9270; A9579; G0378; Q9967